=== PATIENT | female | born 1960 | race Caucasian/White ===

== ENCOUNTER 2017-04-23 06:10 | Inpatient (IN) | payer BC ==
[~2017-04-23 06:10] MED LIST: Lidocaine 1%/Sod Bicarbonate in NS 8.4% 1 ML Syringe IV PRN; Pregabalin 25 MG Cap PO ONE; Sodium Chloride 0.9% 10 ML Syringe FLUSH PRN; oxyCODONE ER 10 MG TAB.ER PO ONE
[2017-04-23] MEDS ORDERED: Naloxone 0.4 MG/ML SDV IVPUSH PRN (06:17)
[2017-04-23] MEDS ORDERED: diphenhydrAMINE 50 MG/ML SDV IVPUSH PRN (06:17)
[2017-04-23] MEDS ORDERED: Sennosides 8.6 MG Tab PO PRN (06:17)
[2017-04-23] MEDS ORDERED: Ondansetron 4 MG/2 ML SDV IVPUSH PRN ×2 (06:17→08:03)
[2017-04-23] MEDS ORDERED: Magnesium Hydroxide 400 MG/5 ML Susp 30 ML Cup PO PRN (06:17)
[2017-04-23] MEDS ORDERED: Docusate Sodium 100 MG Cap PO PRN (06:17)
[2017-04-23] MEDS ORDERED: Bisacodyl 5 MG Tab PO PRN (06:17)
[2017-04-23] MEDS ORDERED: Morphine 2 MG/ML Syringe IVPUSH PRN (06:17)
[2017-04-23] MEDS ORDERED: Iodine/Sodium Iodide 2% Tincture 30 ML Bottle ONE (06:20)
[2017-04-23] MEDS ORDERED: ceFAZolin 1 GM Vial ONE ×2 (06:20→06:36)
[2017-04-23] MEDS ORDERED: Vancomycin 1 GM SDV ONE (06:20)
[2017-04-23] MEDS ORDERED: Bupivacaine 0.25% 30 ML SDV ONE (06:20)
[2017-04-23] MEDS ORDERED: Propofol 200 MG/20 ML SDV ONE (06:35)
[2017-04-23] MEDS ORDERED: Midazolam 1 MG/ML 2 ML SDV ONE (06:35)
[2017-04-23] MEDS ORDERED: Lidocaine 1% 4 ML ONE (06:35)
[2017-04-23] MEDS ORDERED: Ondansetron 4 MG/2 ML SDV ONE (06:35)
[2017-04-23] MEDS ORDERED: Dexamethasone 4 MG/ML 5 ML MDV ONE (06:35)
[2017-04-23] MEDS ORDERED: Rocuronium 50 MG/5 ML Vial ONE (06:35)
[2017-04-23] MEDS ORDERED: fentaNYL 250 MCG/5 ML SDV ONE (06:35)
[2017-04-23] MEDS ORDERED: HYDROmorphone 1 MG/ML Syringe ONE ×2 (06:35→08:14)
[2017-04-23] MEDS: Lactated Ringers 1,000 ML IV SCH ×3 (06:40→11:04)
--- NOTE | 2017-04-23 06:50 | PCM.PREANE ---
Preanesthetic Assessment - Anesthesia/Transfusion/Family Hx Anesthesia History: Prior Anesthesia Without Reaction Family History of Anesthesia Reaction: No Transfusion History: No Prior Transfusion(s) Intubation History: Unknown - Review of Systems General: No Symptoms Pulmonary: No Symptoms Cardiovascular: No Symptoms Gastrointestinal: No Symptoms Neurological: No Symptoms Other: Reports: None - Physical Assessment NPO Status Date: 04/22/17 NPO Status Time: 18:00 Pulse: 80 O2 Sat by Pulse Oximetry: 97 Respiratory Rate: 16 Blood Pressure: 118/79 Temperature: 98.2 F ASA Class: 2 Mental Status: Alert & Oriented x3 Airway Class: Mallampati = 2 Dentition: Reports: Normal Dentition ROM/Head Extension: Full Lungs: Clear to Auscultation, Normal Respiratory Effort Cardiovascular: Regular Rate, Regular Rhythm - Lab Values: Laboratory Last Values Hgb 14.6 gm/L (11.2-15.7) 04/20/17 09:50 Hct 42.9 % (34.1-44.9) 04/20/17 09:50 Sodium 142 mEq/L (136-145) 04/20/17 09:50 Potassium 4.4 mEq/L (3.5-5.1) 04/20/17 09:50 Chloride 107 mEq/L (98-107) 04/20/17 09:50 Carbon Dioxide 27 mEq/L (21-32) 04/20/17 09:50 Anion Gap 12.4 (5-15) 04/20/17 09:50 BUN 12 mg/dL (7-18) 04/20/17 09:50 Creatinine 0.9 mg/dL (0.55-1.02) 04/20/17 09:50 Est Cr Clr Drug Dosing TNP 04/20/17 09:50 Estimated GFR (MDRD) > 60 mL/min (>60) 04/20/17 09:50 BUN/Creatinine Ratio 13.3 (14-18) L 04/20/17 09:50 Glucose 99 mg/dL (74-106) 04/20/17 09:50 Calcium 9.4 mg/dL (8.5-10.1) 04/20/17 09:50 MRSA (PCR) Negative 04/10/17 14:29 - Allergies Allergies/Adverse Reactions: Allergies Allergy/AdvReac Type Severity Reaction Status Date / Time No Known Allergies Allergy Verified 04/20/17 15:56 - Blood Blood Available: Yes - Acknowledgements Anesthesia Type Planned: General Anesthesia Pt an Appropriate Candidate for the Planned Anesthesia: Yes Alternatives and Risks of Anesthesia Discussed w Pt/Guardian: Yes Pt/Guardian Understands and Agrees with Anesthesia Plan: Yes PreAnesthesia Questionnaire HEENT History: Reports: Impaired Vision, Other (See Below) Other HEENT History: wears glasses Cardiovascular History: Reports: None Respiratory History: Reports: Bronchitis, Recurrent, Other (See Below) Other Respiratory History: cough, reactive airway disease, wheezing Gastrointestinal History: Reports: None Genitourinary History: Reports: None 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: Musculoskeletal History: Reports: Arthritis Neurological History: Reports: None Psychiatric History: Reports: None Endocrine/Metabolic History: Reports: None Hematologic History: Reports: None Immunologic History: Reports: None Oncologic (Cancer) History: Reports: None Dermatologic History: Reports: None - Past Surgical History Head Surgeries/Procedures: Reports: None Cardiovascular Surgical History: Reports: None Respiratory Surgical History: Reports: None GI Surgical History: Reports: Cholecystectomy Female Surgical History: Reports: None Male Surgical History: Reports: None Endocrine Surgical History: Reports: None Neurological Surgical History: Reports: None Musculoskeletal Surgical History: Reports: None Oncologic Surgical History: Reports: None Dermatological Surgical History: Reports: None - SUBSTANCE USE Smoking Status *Q: Never Smoker Tobacco Use Within Last Twelve Months: No Second Hand Smoke Exposure: No Recreational Drug Use History: No - HOME MEDS Home Medications: Home Meds Acetaminophen/oxyCODONE [Percocet 325-5 MG] 1 - 2 tab PO Q4H PRN #60 tablet [Rx] Bisacodyl [Dulcolax] 5 mg PO DAILY PRN #0 tablet 04/23/17 [Rx] Cyclobenzaprine [Flexeril] 10 mg PO TID PRN #40 tablet 04/23/17 [Rx] Docusate Sodium [Colace] 100 mg PO BID PRN cap 04/23/17 [Rx] Famotidine [Pepcid] 20 mg PO Q12H tablet 04/23/17 [Rx] Magnesium Hydroxide [Milk of Magnesia] 30 ml PO BID PRN cup 04/23/17 [Rx] Sennosides [Senna] 8.6 mg PO BID PRN tablet 10/23/17 [Rx] Aspirin [Ecotrin] 325 mg PO BID #70 tab.ec 04/24/17 [Rx] - CURRENT (IN HOUSE) MEDS Current Meds: Current Medications Aspirin (Ecotrin) 325 mg PO BID FELICIA Bisacodyl (Dulcolax) 5 mg PO DAILY PRN PRN Reason: Constipation Morphine Sulfate 8 mg/Epinephrine HCl 0.3 mg/Cefuroxime Sodium 750 mg/Ketorolac Tromethamine 30 mg/Sodium Chloride 27.9 ml 0 mg .XX ONETIME ONE Stop: 04/23/17 06:18 Cyclobenzaprine HCl (Flexeril) 10 mg PO TID PRN PRN Reason: Spasms Diphenhydramine HCl (Benadryl) 25 mg IVPUSH Q4H PRN PRN Reason: Nausea Docusate Sodium (Colace) 100 mg PO BID PRN PRN Reason: Constipation Famotidine (Pepcid) 20 mg PO Q12H FELICIA Lactated Ringer's (Ringers, Lactated) 1,000 mls @ 125 mls/hr IV ASDIRECTED FELICIA Cefazolin Sodium/Dextrose 2 gm (/ Premix) 50 mls @ 100 mls/hr IV Q8H FELICIA Stop: 04/23/17 22:59 Ketorolac Tromethamine (Toradol) 15 mg IVPUSH Q6H PRN PRN Reason: Pain Lidocaine/Sodium Bicarbonate (Buffered Lidocaine 1% In Ns 8.4%) 0.25 ml IV ONETIME PRN PRN Reason: Prior to IV Start Magnesium Hydroxide (Milk Of Magnesia) 30 ml PO BID PRN PRN Reason: Constipation Morphine Sulfate (Morphine) 2 mg IVPUSH Q2H PRN PRN Reason: Breakthrough Pain Naloxone HCl (Narcan) 0.1 mg IVPUSH Q5M PRN PRN Reason: Oversedation Ondansetron HCl (Zofran) 4 mg IVPUSH Q6H PRN PRN Reason: Nausea/Vomiting Oxycodone/Acetaminophen (Percocet 325-5 Mg) 1 - 2 tab PO Q4H PRN PRN Reason: Pain Senna (Senna) 8.6 mg PO BID PRN PRN Reason: Constipation Sodium Chloride (Saline Flush) 10 ml FLUSH ASDIRECTED PRN PRN Reason: Keep Vein Open Discontinued Medications Bupivacaine HCl (Marcaine 0.25%) Confirm Administered Dose 30 ml .ROUTE .STK- MED ONE Stop: 04/23/17 06:21 Cefazolin Sodium (Ancef) Confirm Administered Dose 2 gm .ROUTE .STK-MED ONE Stop: 04/23/17 06:37 Cefazolin Sodium (Ancef) Confirm Administered Dose 2 gm .ROUTE .STK-MED ONE Stop: 04/23/17 06:21 Dexamethasone (Dexamethasone) Confirm Administered Dose 20 mg .ROUTE .STK-MED ONE Stop: 04/23/17 06:36 Fentanyl (Sublimaze) Confirm Administered Dose 250 mcg .ROUTE .STK-MED ONE Stop: 04/23/17 06:36 Hydromorphone HCl (Dilaudid) Confirm Administered Dose 1 mg .ROUTE .STK-MED ONE Stop: 04/23/17 06:36 Acetaminophen (Ofirmev) 100 mls @ 400 mls/hr IV ONETIME ONE Stop: 04/23/17 06:14 Lidocaine HCl (Xylocaine-Mpf 1%) Confirm Administered Dose 4 mls @ as directed .ROUTE .STK-MED ONE Stop: 04/23/17 06:36 Iodine (Iodine 2% Mild Tincture) Confirm Administered Dose 30 ml .ROUTE .STK- MED ONE Stop: 04/23/17 06:21 Midazolam HCl (Versed 1 Mg/Ml) Confirm Administered Dose 2 mg .ROUTE .STK-MED ONE Stop: 04/23/17 06:36 Ondansetron HCl (Zofran) Confirm Administered Dose 4 mg .ROUTE .STK-MED ONE Stop: 04/23/17 06:36 Oxycodone HCl (Oxycontin) 10 mg PO ASDIRECTED ONE Stop: 04/23/17 06:01 Pregabalin (Lyrica) 50 mg PO ASDIRECTED ONE Stop: 04/23/17 06:01 Propofol (Diprivan 20 Ml) Confirm Administered Dose 200 mg .ROUTE .STK-MED ONE Stop: 04/23/17 06:36 Rocuronium [place] (Zemuron) Confirm Administered Dose 50 mg .ROUTE .STK-MED ONE Stop: 04/23/17 06:36 Tranexamic Acid (Cyklokapron) Confirm Administered Dose 1,000 mg .ROUTE .STK- MED ONE Stop: 04/23/17 06:21 Vancomycin HCl (Vancomycin) Confirm Administered Dose 1 gm .ROUTE .[employer] ONE Stop: 04/23/17 06:21
--- NOTE | 2017-04-23 07:13 | PCM.OPNOTE ---
- General Post-Op/Procedure Note Date of Surgery/Procedure: 04/23/17 Operative Procedure(s): right total hip artrhoplasty Pre Op Diagnosis: right hip osteoarthrosis Post-Op Diagnosis: Same Anesthesia Technique: Local, MAC, Spinal Primary Surgeon: Abraham Luna Anesthesia Provider: Steven Quiñones Mining Analyst: Vivien Harding Mining Analyst: Yael Harris EBL in mLs: 700 Complications: None Condition: Good Free Text/Narrative:: 56 5 36+5
[2017-04-23] MEDS ORDERED: Morphine 8 MG, EPINEPHrine 0.3 MG, Cefuroxime 750 MG, Ketorolac 30 MG, Sodium Chloride ... ONE ×5 (07:30)
[2017-04-23] MEDS ORDERED: Ketamine 500 mg/10 ML MDV ONE (07:49)
[2017-04-23] MEDS ORDERED: Phenylephrine 1% 10 MG/ML SDV ONE (07:50)
[2017-04-23] MEDS ORDERED: Ketorolac 30 MG/ML SDV ONE (07:53)
[2017-04-23] MEDS ORDERED: HYDROmorphone 0.5 MG/0.5 ML Syringe IVPUSH PRN (08:03)
[2017-04-23] MEDS ORDERED: fentaNYL 100 MCG/2 ML SDV IVPUSH PRN (08:03)
[2017-04-23] MEDS ORDERED: Meperidine PF 50 MG/ML Syringe IVPUSH PRN (08:03)
[2017-04-23] MEDS ORDERED: Lactated Ringers 1,000 ML ONE ×3 (08:13→08:34)
[2017-04-23] MEDS ORDERED: ePHEDrine 50 MG/ML SDV ONE (08:23)
[2017-04-23] MEDS ORDERED: Neostigmine Methylsulfate 1 MG/ML 5 ML Syringe ONE (08:44)
[2017-04-23] MEDS ORDERED: FLU Vacc QS 2017-18 (6mos UP)/PF 60 MCG/0.5 ML Syringe IM ONE (08:45)
--- NOTE | 2017-04-23 09:17 | PCM.POSTAN ---
POST ANESTHESIA ASSESSMENT - MENTAL STATUS Mental Status: Alert, Oriented - VITAL SIGNS Pulse Rate: 79 SaO2: 95 Resp Rate: 16 Blood Pressure: 84/42 Temperature: 97.2 F - RESPIRATORY Respiratory Status: Respiratory Rate WNL, Airway Patent, O2 Saturation Stable - CARDIOVASCULAR CV Status: Pulse Rate WNL, Blood Pressure Stable - GASTROINTESTINAL GI Status: No Symptoms - PAIN Pain Score: 0 - POST OP HYDRATION Hydration Status: Adequate & Stable
--- NOTE | 2017-04-23 10:45 | CR ---
Pelvis and right hip: AP view of the pelvis was obtained as well as frog leg lateral view of the right hip. Comparison: No prior hip exam. Right hip prosthesis is seen. Components are aligned. Soft tissue air is noted around the right hip compatible with the surgical procedure. No underlying bony abnormality is seen. Moderate degenerative change is seen within the left hip with joint space narrowing and spurring. Impression: 1. Satisfactory radiographic appearance of recently placed right hip prosthesis. 2. Moderate degenerative change is noted within the left hip. Diagnostic code #2
[2017-04-23] MEDS: Ketorolac 15 MG/ML SDV IVPUSH PRN (11:49)
[2017-04-23] MEDS ORDERED: Scopolamine 1.5 MG Transdermal Patch TOP ONE (12:35)
[2017-04-23] MEDS: ceFAZolin 2 GM in Premix Bag 1 BAG IV SCH ×3 (13:49→22:24)
[2017-04-23] MEDS: Acetaminophen/oxyCODONE 325-5 MG Tab PO PRN ×3 (13:51→22:26)
--- NOTE | 2017-04-23 15:26 | PCM.CONS ---
H&P History of Present Illness - General Date of Service: 04/23/17 Admit Problem/Dx: Admission Diagnosis/Problem Admission Diagnosis/Problem Osteoarthritis of hip Source of Information: Patient, Family, Old Records, Provider, RN, RN Notes Reviewed History Limitations: Reports: Physical Impairment - History of Present Illness Initial Comments - Free Text/Narative: This is a 57-year-old, white female, with past medical history of OA, Chronic Hip Pain, RAD and Obesity who underwent right total hip arthroplasty post operative day zero. Patient is not doing well. She is hypotensive and actively nauseous w/ emesis. Currently, her pain is controlled. She denies any other acute issues. Hospital Medicine was consulted for postoperative care. Right Hip Pain Score (Numeric/FACES): 0 - Related Data Allergies/Adverse Reactions: Allergies Allergy/AdvReac Type Severity Reaction Status Date / Time No Known Allergies Allergy Verified 04/20/17 15:56 Home Medications: Home Meds Acetaminophen/oxyCODONE [Percocet 325-5 MG] 1 - 2 tab PO Q4H PRN #60 tablet [Rx] Bisacodyl [Dulcolax] 5 mg PO DAILY PRN #0 tablet 04/23/17 [Rx] Cyclobenzaprine [Flexeril] 10 mg PO TID PRN #40 tablet 04/23/17 [Rx] Docusate Sodium [Colace] 100 mg PO BID PRN cap 04/23/17 [Rx] Famotidine [Pepcid] 20 mg PO Q12H tablet 04/23/17 [Rx] Magnesium Hydroxide [Milk of Magnesia] 30 ml PO BID PRN cup 04/23/17 [Rx] Sennosides [Senna] 8.6 mg PO BID PRN tablet 04/23/17 [Rx] Aspirin [Ecotrin] 325 mg PO BID #70 tab.ec 04/24/17 [Rx] Past Medical History HEENT History: Reports: Impaired Vision, Other (See Below) Other HEENT History: wears glasses Cardiovascular History: Reports: None Respiratory History: Reports: Bronchitis, Recurrent, Other (See Below) Other Respiratory History: cough, reactive airway disease, wheezing Gastrointestinal History: Reports: None Genitourinary History: Reports: None 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: Musculoskeletal History: Reports: Arthritis Neurological History: Reports: None Psychiatric History: Reports: None Endocrine/Metabolic History: Reports: None Hematologic History: Reports: None Immunologic History: Reports: None Oncologic (Cancer) History: Reports: None Dermatologic History: Reports: None - Infectious Disease History Infectious Disease History: Reports: Chicken Pox - Past Surgical History Head Surgeries/Procedures: Reports: None Cardiovascular Surgical History: Reports: None Respiratory Surgical History: Reports: None GI Surgical History: Reports: Cholecystectomy Female Surgical History: Reports: None Male Surgical History: Reports: None Endocrine Surgical History: Reports: None Neurological Surgical History: Reports: None Musculoskeletal Surgical History: Reports: None Oncologic Surgical History: Reports: None Dermatological Surgical History: Reports: None Social & Family History - Family History Family Medical History: Noncontributory - Tobacco Use Smoking Status *Q: Never Smoker Second Hand Smoke Exposure: No - Caffeine Use Caffeine Use: Reports: Coffee - Recreational Drug Use Recreational Drug Use: No Drug Use in Last 12 Months: No H&P Review of Systems - Review of Systems: Review Of Systems: See Below General: Denies: Fever, Chills, Malaise, Weakness HEENT: Reports: No Symptoms Pulmonary: Denies: Shortness of Breath Cardiovascular: Denies: Chest Pain Gastrointestinal: Reports: Nausea, Vomiting. Denies: Abdominal Pain, Decreased Appetite Genitourinary: Reports: No Symptoms Musculoskeletal: Reports: No Symptoms Skin: Denies: Cyanosis, Pallor, Diaphoresis Psychiatric: Reports: Anxiety. Denies: Depression, Agitation, Hallucinations Neurological: Reports: Difficulty Walking, Gait Disturbance. Denies: Confusion , Weakness Hematologic/Lymphatic: Reports: No Symptoms Immunologic: Reports: No Symptoms Exam - Exam Exam: See Below - Vital Signs Vital Signs: Last Vital Signs Temp 35.8 C 04/23/17 10:39 Pulse 68 04/23/17 14:32 Resp 18 04/23/17 10:39 BP 108/53 L 04/23/17 14:32 Pulse Ox 99 04/23/17 14:32 Weight: 78.018 kg - Exam General: Alert, Oriented, Cooperative, Mild Distress, Other (Obese) HEENT: Conjunctiva Clear, EACs Clear, EOMI, Hearing Intact, Mucosa Moist & [place] , Nares Patent, Normal Nasal Septum, Posterior Pharynx Clear, Pupils Equal, Pupils Reactive Neck: Supple, Trachea Midline, +2 Carotid Pulse wo Bruit, Full Range of Motion Lungs: Clear to Auscultation, Normal Respiratory Effort Cardiovascular: Regular Rate, Regular Rhythm GI/Abdominal Exam: Normal Bowel Sounds, Soft, Non-Tender, No Organomegaly, No Distention, No Abnormal Bruit (Female) Exam: Deferred Rectal (Female) Exam: Deferred Back Exam: Normal Inspection, Decreased Range of Motion Extremities: Normal Inspection, Normal Range of Motion, Non-Tender, No Pedal Edema, Normal Capillary Refill Peripheral Pulses: 2+: Dorsalis Pedis (L), Dorsalis Pedis (R) Skin: Warm, Dry, Intact Neuro Extensive - Mental Status: Oriented x3, Normal Cognition, Memory Intact Neuro Extensive - Motor, Sensory, Reflexes: CN II-XII Intact (Limited but grossly intact), Abnormal Gait Psychiatric: Alert, Normal Affect, Anxious. No: Withdrawal Symptoms - Patient Data Lab Results Last 24 hrs: Laboratory Results - last 24 hr 04/23/17 Range/Units 06:40 Blood Type A POSITIVE Gel Antibody Screen Negative Result Diagrams: 04/20/17 09:50 04/20/17 09:50 Consult PN Assessment/Plan POD#: 0 Procedures: Procedures CHEST X-RAY 2VW FRONTAL&LATL (04/06/17) MRI LUMBAR SPINE W/O DYE (11/07/13) X-RAY BEND ONLY L-S SPINE (11/07/13) X-RAY EXAM L-S SPINE 2/3 VWS (10/03/16) X-RAY EXAM NECK SPINE 2-3 VW (10/03/16) X-RAY EXAM THORAC SPINE 2VWS (10/03/16) Problem List Initiated/Reviewed/Updated: Yes Plan: Assessment: Acute: Post-Operative Care State - Patient is hypotensive with BP as lows as 84/42 mmHg - Continue to monitor for hemodynamic instability S/p Right Total Hip Arthroplasty - Stable - DVT and Pain Management as per primary team Hx/o Chronic Hip Pain S/p Right EMILY - Pain Management as per primary team Post Operative Hypotension - Had an est blood loss of 700 ml - Bolus 1/2 of currently 1L LR then resume maintenance rate at 125 cc/hr - Monitor vitals Post-Operative Nausea/Vomiting - Scopolamine Patch x1 - PRN anti-emesis Chronic: OA RAD Obesity with BMI of 31 Plan: She is hemodynamically unstable Routine AM labs Continue home meds PT/OT consult IS q2 awake Thank you for the opportunity to participate in the management of this patient. Requesting Provider: Dr. Luna Date Consult Requested: 04/23/17 Reason for Consult: Post-Operative Care Patient History Reviewed: Yes Admission H&P Reviewed: Yes Consult Result/Summary: Patient is hemodynamically unstable
[2017-04-23] MEDS: Cyclobenzaprine 10 MG Tab PO PRN (16:19)
[2017-04-23] MEDS: Famotidine 20 MG Tab PO SCH ×2 (18:11→19:48)
[2017-04-24] MEDS: Acetaminophen/oxyCODONE 325-5 MG Tab PO PRN (06:01)
[2017-04-24] MEDS: Cyclobenzaprine 10 MG Tab PO PRN (06:03)
[2017-04-24] MEDS: Famotidine 20 MG Tab PO SCH (06:03)
[2017-04-24] MEDS ORDERED: Aspirin 325 MG Tab.EC PO SCH (09:00)
--- NOTE | 2017-04-24 09:53 | PCM48HPAN ---
Post Anesthesia Note - EVALUATION WITHIN 48HRS OF ANESTHETIC Vital Signs in Normal Range: Yes Patient Participated in Evaluation: Yes Respiratory Function Stable: Yes Airway Patent: Yes Cardiovascular Function Stable: Yes Hydration Status Stable: Yes Pain Control Satisfactory: Yes Nausea and Vomiting Control Satisfactory: Yes Mental Status Recovered: Yes - COMMENTS/OBSERVATIONS Free Text/Narrative:: Kelly is up walking. She feels good. No more nausea noted after about 1500 yesterday. She is tolerating eating. Pain is satisfactory. She has no further questions at this time. No complications noted.
[2017-04-24] MEDS: Ketorolac 15 MG/ML SDV IVPUSH PRN (13:48)
--- NOTE | 2017-04-24 15:11 | PCM.PN ---
- General Info Date of Service: 04/24/17 Admission Dx/Problem (Free Text): Admission Diagnosis/Problem Admission Diagnosis/Problem Osteoarthritis of hip Functional Status: Reports: Pain Controlled, Tolerating Diet, Ambulating, Urinating. Denies: New Symptoms - Patient Data Vitals - Most Recent: Last Vital Signs Temp 36.7 C 04/24/17 12:16 Pulse 79 04/24/17 12:16 Resp 16 04/24/17 12:16 BP 106/58 L 04/24/17 12:16 Pulse Ox 95 04/24/17 12:16 Weight - Most Recent: 82.372 kg I&O - Last 24 Hours: Intake & Output 04/24/17 04/24/17 04/24/17 06:59 14:59 22:59 Intake Total 775 780 Output Total 2900 Balance -2125 780 Lab Results Last 24 Hours: Laboratory Results - last 24 hr 04/24/17 04/24/17 Range/Units 05:42 05:42 WBC 18.73 H (3.98-10.04) K/mm3 RBC 3.39 L (3.98-5.22) M/mm3 Hgb 10.5 L (11.2-15.7) gm/L Hct 30.9 L (34.1-44.9) % MCV 91.2 (79.4-94.8) fl MCH 31.0 (25.6-32.2) pg MCHC 34.0 (32.2-35.5) g/dl RDW Std Deviation 40.3 (36.4-46.3) fL Plt Count 268 (182-369) K/mm3 MPV 9.7 (9.4-12.3) fl Neut % (Auto) 85.0 H (34.0-71.1) % Lymph % (Auto) 7.7 L (19.3-51.7) % Barry % (Auto) 6.8 (4.7-12.5) % Eos % (Auto) 0.1 L (0.7-5.8) Baso % (Auto) 0.1 (0.1-1.2) % Neut # (Auto) 15.94 H (1.56-6.13) K/mm3 Lymph # (Auto) 1.44 (1.18-3.74) K/mm3 Barry # (Auto) 1.27 H (0.24-0.36) K/mm3 Eos # (Auto) 0.01 L (0.04-0.36) K/mm3 Baso # (Auto) 0.01 (0.01-0.08) K/mm3 Manual Slide Review Abnormal smear Sodium 139 (136-145) mEq/L Potassium 5.3 H (3.5-5.1) mEq/L Chloride 105 (98-107) mEq/L Carbon Dioxide 25 (21-32) mEq/L Anion Gap 14.3 (5-15) BUN 14 (7-18) mg/dL Creatinine 1.1 H (0.55-1.02) mg/dL Est Cr Clr Drug Dosing 44.09 mL/min Estimated GFR (MDRD) 51 (>60) mL/min BUN/Creatinine Ratio 12.7 L (14-18) Glucose 116 H (74-106) mg/dL Calcium 9.2 (8.5-10.1) mg/dL Total Bilirubin 0.5 (0.2-1.0) mg/dL AST 36 (15-37) U/L ALT 45 (14-59) U/L Alkaline Phosphatase 67 (46-116) U/L Total Protein 6.2 L (6.4-8.2) g/dl Albumin 3.0 L (3.4-5.0) g/dl Globulin 3.2 gm/dL Albumin/Globulin Ratio 0.9 L (1-2) Med Orders - Current: Current Medications Aspirin (Ecotrin) 325 mg PO BID [facility] Last Admin: 04/24/17 09:45 Dose: 325 mg Bisacodyl (Dulcolax) 5 mg PO DAILY PRN PRN Reason: Constipation Cyclobenzaprine HCl (Flexeril) 10 mg PO TID PRN PRN Reason: Spasms Last Admin: 04/24/17 06:03 Dose: 10 mg Diphenhydramine HCl (Benadryl) 25 mg IVPUSH Q4H PRN PRN Reason: Nausea Docusate Sodium (Colace) 100 mg PO BID PRN PRN Reason: Constipation Famotidine (Pepcid) 20 mg PO Q12H [facility] Last Admin: 04/24/17 06:03 Dose: 20 mg Magnesium Hydroxide (Milk Of Magnesia) 30 ml PO BID PRN PRN Reason: Constipation Morphine Sulfate (Morphine) 2 mg IVPUSH Q2H PRN PRN Reason: Breakthrough Pain Naloxone HCl (Narcan) 0.1 mg IVPUSH Q5M PRN PRN Reason: Oversedation Ondansetron HCl (Zofran) 4 mg IVPUSH Q6H PRN PRN Reason: Nausea/Vomiting Last Admin: 04/23/17 11:40 Dose: 4 mg Oxycodone/Acetaminophen (Percocet 325-5 Mg) 1 - 2 tab PO Q4H PRN PRN Reason: Pain Last Admin: 04/24/17 06:01 Dose: 2 tab Senna (Senna) 8.6 mg PO BID PRN PRN Reason: Constipation Sodium Chloride (Saline Flush) 10 ml FLUSH ASDIRECTED PRN PRN Reason: Keep Vein Open Discontinued Medications Bupivacaine HCl (Marcaine 0.25%) Confirm Administered Dose 30 ml .ROUTE .STK- MED ONE Stop: 04/23/17 06:21 Last Admin: 04/23/17 08:36 Dose: 30 ml Cefazolin Sodium (Ancef) Confirm Administered Dose 2 gm .ROUTE .STK-MED ONE Stop: 04/23/17 06:37 Last Admin: 04/23/17 08:30 Dose: 2 gm Cefazolin Sodium (Ancef) Confirm Administered Dose 2 gm .ROUTE .STK-MED ONE Stop: 04/23/17 06:21 Morphine Sulfate 8 mg/Epinephrine HCl 0.3 mg/Cefuroxime Sodium 750 mg/Ketorolac Tromethamine 30 mg/Sodium Chloride 27.9 ml 0 mg .XX ONETIME ONE Stop: 04/23/17 07:31 Last Admin: 04/23/17 08:35 Dose: 788.3 mg Dexamethasone (Dexamethasone) Confirm Administered Dose 20 mg .ROUTE .STK-MED ONE Stop: 04/23/17 06:36 Ephedrine Sulfate (Ephedrine Sulfate) Confirm Administered Dose 50 mg .ROUTE .STK-MED ONE Stop: 04/23/17 08:24 Fentanyl (Sublimaze) Confirm Administered Dose 250 mcg .ROUTE .STK-MED ONE Stop: 04/23/17 06:36 Fentanyl (Sublimaze) 50 mcg IVPUSH Q5M PRN PRN Reason: Pain Stop: 04/23/17 11:00 Glycopyrrolate () Confirm Administered Dose 1 mg .ROUTE .STK-MED ONE Stop: 04/23/17 08:45 Hydromorphone HCl (Dilaudid) Confirm Administered Dose 1 mg .ROUTE .STK-MED ONE Stop: 04/23/17 06:36 Hydromorphone HCl (Dilaudid) Confirm Administered Dose 1 mg .ROUTE .STK-MED ONE Stop: 04/23/17 08:15 Hydromorphone HCl (Dilaudid) 0.5 mg IVPUSH Q15M PRN PRN Reason: severe pain Stop: 04/23/17 11:00 Lactated Ringer's (Ringers, Lactated) 1,000 mls @ 125 mls/hr IV ASDIRECTED [facility] Last Admin: 04/23/17 11:04 Dose: 125 mls/hr Acetaminophen (Ofirmev) 100 mls @ 400 mls/hr IV ONETIME ONE Stop: 04/23/17 06:14 Last Admin: 04/23/17 06:51 Dose: 400 mls/hr Lidocaine HCl (Xylocaine-Mpf 1%) Confirm Administered Dose 4 mls @ as directed .ROUTE .STK-MED ONE Stop: 04/23/17 06:36 Cefazolin Sodium/Dextrose 2 gm (/ Premix) 50 mls @ 100 mls/hr IV Q8H [facility] Stop: 04/23/17 22:59 Last Admin: 04/23/17 22:24 Dose: 100 mls/hr Lactated Ringer's (Ringers, Lactated) Confirm Administered Dose 1,000 mls @ as directed .ROUTE .STK-MED ONE Stop: 04/23/17 08:14 Lactated Ringer's (Ringers, Lactated) Confirm Administered Dose 1,000 mls @ as directed .ROUTE .STK-MED ONE Stop: 04/23/17 08:35 Lactated Ringer's (Ringers, Lactated) Confirm Administered Dose 1,000 mls @ as directed .ROUTE .STK-MED ONE Stop: 04/23/17 08:35 Influenza Virus Vaccine (Pharmacy To Dose - Influenza Vaccine) 1 each IM ONETIME ONE Stop: 04/23/17 08:30 Last Admin: 04/24/17 01:52 Dose: Not Given Influenza Virus Vaccine (Flulaval Quad [id number]) 60 mcg IM .ONCE ONE Stop: 04/23/17 08:46 Iodine (Iodine 2% Mild Tincture) Confirm Administered Dose 30 ml .ROUTE .STK- MED ONE Stop: 04/23/17 06:21 Last Admin: 04/23/17 08:27 Dose: 18 ml Ketamine HCl (Ketalar) Confirm Administered Dose 500 mg .ROUTE .STK-MED ONE Stop: 04/23/17 07:50 Ketorolac Tromethamine (Toradol) 15 mg IVPUSH Q6H PRN PRN Reason: Pain Last Admin: 04/24/17 13:48 Dose: 15 mg Ketorolac Tromethamine (Toradol) Confirm Administered Dose 30 mg .ROUTE .STK- MED ONE Stop: 04/23/17 07:54 Lidocaine/Sodium Bicarbonate (Buffered Lidocaine 1% In Ns 8.4%) 0.25 ml IV ONETIME PRN PRN Reason: Prior to IV Start Last Admin: 04/23/17 06:40 Dose: 0.25 ml Meperidine HCl (Demerol) 12.5 mg IVPUSH ONETIME PRN PRN Reason: shivering Stop: 04/23/17 11:00 Midazolam HCl (Versed 1 Mg/Ml) Confirm Administered Dose 2 mg .ROUTE .STK-MED ONE Stop: 04/23/17 06:36 Neostigmine Methylsulfate (Neostigmine) Confirm Administered Dose 5 mg .ROUTE .STK-MED ONE Stop: 04/23/17 08:45 Ondansetron HCl (Zofran) Confirm Administered Dose 4 mg .ROUTE .STK-MED ONE Stop: 04/23/17 06:36 Ondansetron HCl (Zofran) 4 mg IVPUSH ONETIME PRN PRN Reason: Nausea/Vomiting Stop: 04/23/17 11:00 Oxycodone HCl (Oxycontin) 10 mg PO ASDIRECTED ONE Stop: 04/23/17 06:01 Last Admin: 04/23/17 06:50 Dose: 10 mg Phenylephrine HCl (Francois-Synephrine) Confirm Administered Dose 10 mg .ROUTE .STK- MED ONE Stop: 04/23/17 07:51 Pregabalin (Lyrica) 50 mg PO ASDIRECTED ONE Stop: 04/23/17 06:01 Last Admin: 04/23/17 06:49 Dose: 50 mg Propofol (Diprivan 20 Ml) Confirm Administered Dose 200 mg .ROUTE .STK-MED ONE Stop: 04/23/17 06:36 Rocuronium [place] (Zemuron) Confirm Administered Dose 50 mg .ROUTE .STK-MED ONE Stop: 04/23/17 06:36 Scopolamine (Transderm-Scop) 1.5 mg TOP ONETIME ONE Stop: 04/23/17 12:36 Last Admin: 04/23/17 13:49 Dose: 1.5 mg Tranexamic Acid (Cyklokapron) Confirm Administered Dose 1,000 mg .ROUTE .STK- MED ONE Stop: 04/23/17 06:21 Last Admin: 04/23/17 08:46 Dose: 1,000 mg Vancomycin HCl (Vancomycin) Confirm Administered Dose 1 gm .ROUTE .STK-MED ONE Stop: 04/23/17 06:21 Last Admin: 04/23/17 08:37 Dose: 1 gm
--- NOTE | 2017-04-24 15:17 | PCM.CONSN ---
- General Info Date of Service: 04/24/17 Admission Dx/Problem (Free Text): Post Operative State Subjective Update: Follow Up Functional Status: Reports: Pain Controlled, Tolerating Diet, Ambulating, Urinating. Denies: New Symptoms - Review of Systems General: Denies: Fever, Weakness, Fatigue, Malaise, Chills HEENT: Reports: No Symptoms Pulmonary: Denies: Shortness of Breath Cardiovascular: Denies: Chest Pain Gastrointestinal: Denies: Abdominal Pain, Nausea, Vomiting Genitourinary: Reports: No Symptoms Musculoskeletal: Reports: No Symptoms Skin: Denies: Cyanosis, Pallor, Diaphoresis Neurological: Reports: Gait Disturbance. Denies: Confusion, Difficulty Walking , Weakness Psychiatric: Denies: Depression, Anxiety, Agitation, Hallucinations Systems Review Comment:: No overnight or acute issues. She is doing relatively well. Pain is controlled. She is tolerating po meals w/o any GI issues. - Patient Data Vitals - Most Recent: Last Vital Signs Temp 36.7 C 04/24/17 12:16 Pulse 79 04/24/17 12:16 Resp 16 04/24/17 12:16 BP 106/58 L 04/24/17 12:16 Pulse Ox 95 04/24/17 12:16 Weight - Most Recent: 82.372 kg I&O - Last 24 Hours: Intake & Output 04/24/17 04/24/17 04/24/17 06:59 14:59 22:59 Intake Total 775 780 Output Total 2900 Balance -2125 780 Lab Results Last 24 Hours: Laboratory Results - last 24 hr 04/24/17 04/24/17 Range/Units 05:42 05:42 WBC 18.73 H (3.98-10.04) K/mm3 RBC 3.39 L (3.98-5.22) M/mm3 Hgb 10.5 L (11.2-15.7) gm/L Hct 30.9 L (34.1-44.9) % MCV 91.2 (79.4-94.8) fl MCH 31.0 (25.6-32.2) pg MCHC 34.0 (32.2-35.5) g/dl RDW Std Deviation 40.3 (36.4-46.3) fL Plt Count 268 (182-369) K/mm3 MPV 9.7 (9.4-12.3) fl Neut % (Auto) 85.0 H (34.0-71.1) % Lymph % (Auto) 7.7 L (19.3-51.7) % [place] % (Auto) 6.8 (4.7-12.5) % Eos % (Auto) 0.1 L (0.7-5.8) Baso % (Auto) 0.1 (0.1-1.2) % Neut # (Auto) 15.94 H (1.56-6.13) K/mm3 Lymph # (Auto) 1.44 (1.18-3.74) K/mm3 [place] # (Auto) 1.27 H (0.24-0.36) K/mm3 Eos # (Auto) 0.01 L (0.04-0.36) K/mm3 Baso # (Auto) 0.01 (0.01-0.08) K/mm3 Manual Slide Review Abnormal smear Sodium 139 (136-145) mEq/L Potassium 5.3 H (3.5-5.1) mEq/L Chloride 105 (98-107) mEq/L Carbon Dioxide 25 (21-32) mEq/L Anion Gap 14.3 (5-15) BUN 14 (7-18) mg/dL Creatinine 1.1 H (0.55-1.02) mg/dL Est Cr Clr Drug Dosing 44.09 mL/min Estimated GFR (MDRD) 51 (>60) mL/min BUN/Creatinine Ratio 12.7 L (14-18) Glucose 116 H (74-106) mg/dL Calcium 9.2 (8.5-10.1) mg/dL Total Bilirubin 0.5 (0.2-1.0) mg/dL AST 36 (15-37) U/L ALT 45 (14-59) U/L Alkaline Phosphatase 67 (46-116) U/L Total Protein 6.2 L (6.4-8.2) g/dl Albumin 3.0 L (3.4-5.0) g/dl Globulin 3.2 gm/dL Albumin/Globulin Ratio 0.9 L (1-2) Med Orders - Current: Current Medications Aspirin (Ecotrin) 325 mg PO BID [facility] Last Admin: 04/24/17 09:45 Dose: 325 mg Bisacodyl (Dulcolax) 5 mg PO DAILY PRN PRN Reason: Constipation Cyclobenzaprine HCl (Flexeril) 10 mg PO TID PRN PRN Reason: Spasms Last Admin: 04/24/17 06:03 Dose: 10 mg Diphenhydramine HCl (Benadryl) 25 mg IVPUSH Q4H PRN PRN Reason: Nausea Docusate Sodium (Colace) 100 mg PO BID PRN PRN Reason: Constipation Famotidine (Pepcid) 20 mg PO Q12H [facility] Last Admin: 04/24/17 06:03 Dose: 20 mg Magnesium Hydroxide (Milk Of Magnesia) 30 ml PO BID PRN PRN Reason: Constipation Morphine Sulfate (Morphine) 2 mg IVPUSH Q2H PRN PRN Reason: Breakthrough Pain Naloxone HCl (Narcan) 0.1 mg IVPUSH Q5M PRN PRN Reason: Oversedation Ondansetron HCl (Zofran) 4 mg IVPUSH Q6H PRN PRN Reason: Nausea/Vomiting Last Admin: 04/23/17 11:40 Dose: 4 mg Oxycodone/Acetaminophen (Percocet 325-5 Mg) 1 - 2 tab PO Q4H PRN PRN Reason: Pain Last Admin: 04/24/17 06:01 Dose: 2 tab Senna (Senna) 8.6 mg PO BID PRN PRN Reason: Constipation Sodium Chloride (Saline Flush) 10 ml FLUSH ASDIRECTED PRN PRN Reason: Keep Vein Open Discontinued Medications Bupivacaine HCl (Marcaine 0.25%) Confirm Administered Dose 30 ml .ROUTE .STK- MED ONE Stop: 04/23/17 06:21 Last Admin: 04/23/17 08:36 Dose: 30 ml Cefazolin Sodium (Ancef) Confirm Administered Dose 2 gm .ROUTE .STK-MED ONE Stop: 04/23/17 06:37 Last Admin: 04/23/17 08:30 Dose: 2 gm Cefazolin Sodium (Ancef) Confirm Administered Dose 2 gm .ROUTE .STK-MED ONE Stop: 04/23/17 06:21 Morphine Sulfate 8 mg/Epinephrine HCl 0.3 mg/Cefuroxime Sodium 750 mg/Ketorolac Tromethamine 30 mg/Sodium Chloride 27.9 ml 0 mg .XX ONETIME ONE Stop: 04/23/17 07:31 Last Admin: 04/23/17 08:35 Dose: 788.3 mg Dexamethasone (Dexamethasone) Confirm Administered Dose 20 mg .ROUTE .STK-MED ONE Stop: 04/23/17 06:36 Ephedrine Sulfate (Ephedrine Sulfate) Confirm Administered Dose 50 mg .ROUTE .STK-MED ONE Stop: 04/23/17 08:24 Fentanyl (Sublimaze) Confirm Administered Dose 250 mcg .ROUTE .STK-MED ONE Stop: 04/23/17 06:36 Fentanyl (Sublimaze) 50 mcg IVPUSH Q5M PRN PRN Reason: Pain Stop: 04/23/17 11:00 Glycopyrrolate () Confirm Administered Dose 1 mg .ROUTE .STK-MED ONE Stop: 04/23/17 08:45 Hydromorphone HCl (Dilaudid) Confirm Administered Dose 1 mg .ROUTE .STK-MED ONE Stop: 04/23/17 06:36 Hydromorphone HCl (Dilaudid) Confirm Administered Dose 1 mg .ROUTE .STK-MED ONE Stop: 04/23/17 08:15 Hydromorphone HCl (Dilaudid) 0.5 mg IVPUSH Q15M PRN PRN Reason: severe pain Stop: 04/23/17 11:00 Lactated Ringer's (Ringers, Lactated) 1,000 mls @ 125 mls/hr IV ASDIRECTED [facility] Last Admin: 04/23/17 11:04 Dose: 125 mls/hr Acetaminophen (Ofirmev) 100 mls @ 400 mls/hr IV ONETIME ONE Stop: 04/23/17 06:14 Last Admin: 04/23/17 06:51 Dose: 400 mls/hr Lidocaine HCl (Xylocaine-Mpf 1%) Confirm Administered Dose 4 mls @ as directed .ROUTE .STK-MED ONE Stop: 04/23/17 06:36 Cefazolin Sodium/Dextrose 2 gm (/ Premix) 50 mls @ 100 mls/hr IV Q8H [facility] Stop: 04/23/17 22:59 Last Admin: 04/23/17 22:24 Dose: 100 mls/hr Lactated Ringer's (Ringers, Lactated) Confirm Administered Dose 1,000 mls @ as directed .ROUTE .STK-MED ONE Stop: 04/23/17 08:14 Lactated Ringer's (Ringers, Lactated) Confirm Administered Dose 1,000 mls @ as directed .ROUTE .STK-MED ONE Stop: 04/23/17 08:35 Lactated Ringer's (Ringers, Lactated) Confirm Administered Dose 1,000 mls @ as directed .ROUTE .STK-MED ONE Stop: 04/23/17 08:35 Influenza Virus Vaccine (Pharmacy To Dose - Influenza Vaccine) 1 each IM ONETIME ONE Stop: 04/23/17 08:30 Last Admin: 04/24/17 01:52 Dose: Not Given Influenza Virus Vaccine (Flulaval Quad [id number]) 60 mcg IM .ONCE ONE Stop: 04/23/17 08:46 Iodine (Iodine 2% Mild Tincture) Confirm Administered Dose 30 ml .ROUTE .STK- MED ONE Stop: 04/23/17 06:21 Last Admin: 04/23/17 08:27 Dose: 18 ml Ketamine HCl (Ketalar) Confirm Administered Dose 500 mg .ROUTE .STK-MED ONE Stop: 04/23/17 07:50 Ketorolac Tromethamine (Toradol) 15 mg IVPUSH Q6H PRN PRN Reason: Pain Last Admin: 04/24/17 13:48 Dose: 15 mg Ketorolac Tromethamine (Toradol) Confirm Administered Dose 30 mg .ROUTE .STK- MED ONE Stop: 04/23/17 07:54 Lidocaine/Sodium Bicarbonate (Buffered Lidocaine 1% In Ns 8.4%) 0.25 ml IV ONETIME PRN PRN Reason: Prior to IV Start Last Admin: 04/23/17 06:40 Dose: 0.25 ml Meperidine HCl (Demerol) 12.5 mg IVPUSH ONETIME PRN PRN Reason: shivering Stop: 04/23/17 11:00 Midazolam HCl (Versed 1 Mg/Ml) Confirm Administered Dose 2 mg .ROUTE .STK-MED ONE Stop: 04/23/17 06:36 Neostigmine Methylsulfate (Neostigmine) Confirm Administered Dose 5 mg .ROUTE .STK-MED ONE Stop: 04/23/17 08:45 Ondansetron HCl (Zofran) Confirm Administered Dose 4 mg .ROUTE .STK-MED ONE Stop: 04/23/17 06:36 Ondansetron HCl (Zofran) 4 mg IVPUSH ONETIME PRN PRN Reason: Nausea/Vomiting Stop: 04/23/17 11:00 Oxycodone HCl (Oxycontin) 10 mg PO ASDIRECTED ONE Stop: 04/23/17 06:01 Last Admin: 04/23/17 06:50 Dose: 10 mg Phenylephrine HCl (Francois-Synephrine) Confirm Administered Dose 10 mg .ROUTE .STK- MED ONE Stop: 04/23/17 07:51 Pregabalin (Lyrica) 50 mg PO ASDIRECTED ONE Stop: 04/23/17 06:01 Last Admin: 04/23/17 06:49 Dose: 50 mg Propofol (Diprivan 20 Ml) Confirm Administered Dose 200 mg .ROUTE .STK-MED ONE Stop: 04/23/17 06:36 Rocuronium [place] (Zemuron) Confirm Administered Dose 50 mg .ROUTE .STK-MED ONE Stop: 04/23/17 06:36 Scopolamine (Transderm-Scop) 1.5 mg TOP ONETIME ONE Stop: 04/23/17 12:36 Last Admin: 04/23/17 13:49 Dose: 1.5 mg Tranexamic Acid (Cyklokapron) Confirm Administered Dose 1,000 mg .ROUTE .STK- MED ONE Stop: 04/23/17 06:21 Last Admin: 04/23/17 08:46 Dose: 1,000 mg Vancomycin HCl (Vancomycin) Confirm Administered Dose 1 gm .ROUTE .STK-MED ONE Stop: 04/23/17 06:21 Last Admin: 04/23/17 08:37 Dose: 1 gm - Exam General: Alert, Oriented, Cooperative, No Acute Distress HEENT: Pupils Equal, Pupils Reactive, EOMI, Mucous Membr. Moist/[place] Neck: Supple, Trachea Midline, No JVD, No Thyromegaly Lungs: Clear to Auscultation, Normal Respiratory Effort Cardiovascular: Regular Rate, Regular Rhythm GI/Abdominal Exam: Normal Bowel Sounds, Soft, Non-Tender, No Organomegaly, No Distention, No Abnormal Bruit (Female) Exam: Deferred Back Exam: Normal Inspection, Decreased Range of Motion Extremities: Normal Inspection, Normal Range of Motion, No Pedal Edema, Normal Capillary Refill Peripheral Pulses: 2+: Dorsalis Pedis (L), Dorsalis Pedis (R) Skin: Warm, Dry, Intact Neurological: No New Focal Deficit Psy/Mental Status: Alert, Normal Affect, Normal Mood Consult PN Assessment/Plan POD#: 1 Procedures: Procedures CHEST X-RAY 2VW FRONTAL&LATL (04/06/17) MRI LUMBAR SPINE W/O DYE (11/07/13) X-RAY BEND ONLY L-S SPINE (11/07/13) X-RAY EXAM L-S SPINE 2/3 VWS (10/03/16) X-RAY EXAM NECK SPINE 2-3 VW (10/03/16) X-RAY EXAM THORAC SPINE 2VWS (10/03/16) Problem List Initiated/Reviewed/Updated: Yes Plan: Assessment: Acute: Post-Operative Care State - Patient is now stable - Continue to monitor for hemodynamic instability S/p Right Total Hip Arthroplasty - Stable - DVT and Pain Management as per primary team Hx/o Chronic Hip Pain S/p Right EMILY - Pain Management as per primary team Resolved: Post Operative Hypotension, Improved - Had an est blood loss of 700 ml - Bolus 1/2 of currently 1L LR then resume maintenance rate at 125 cc/hr - Monitor vitals Post-Operative Nausea/Vomiting, Resolved - Scopolamine Patch x1 - PRN anti-emesis Chronic: OA RAD Obesity with BMI of 31 Plan: She is now hemodynamically and clincially stable Routine AM labs Continue PT/OT IS q2 awake From the Hospitalist standpoint, we have no additional recommendations but to continue current treatment. We are now signing off on her case, please feel free to re-consult us if you still need further help.
--- NOTE | 2017-04-25 10:37 | PCM.DCSUM1 ---
Discharge Summary - Hospital Course Brief History: Kelly is a 57 yo female who underwent right EMILY with Dr. Luna on 04-23-2017. The procedure was completed under general anesthesia. The pt tolerated the procedure well and was admitted to the Medical-Surgical Unit. Medical management was provided by the Hospitalist service. The pt's Hospital course was uneventful. The pt's Hgb on POD#1 was 10.5. On POD#1, 325mg ASA BID was initiated for VTE prophylaxis. SCDs and TEDs were also ordered. A Mepilex dressing was placed at the incision site at the time of surgery and remained clean and dry. The pt participated in P.T. and O.T. and progressed well. She followed the EMILY precautions. The pt was allowed to WBAT. On POD#1 , the pt was deemed appropriate to discharge to home with her . - Discharge Data Discharge Date: 04/24/17 Discharge Disposition: Home, Self-Care 01 Condition: Good - Patient Summary/Data Operative Procedure(s) Performed: right total hip artrhoplasty Consults: Consultations 04/23/17 06:17 Consult to Physician [CONS] Routine OT Evaluation and Treatment [CONS] Urgent PT Evaluation and Treatment [CONS] Urgent - Patient Instructions Diet: Usual Diet as Tolerated Activity: Apply Ice, As Tolerated, Elevate Extremity, Full Weight Bearing Activity, Other: EMILY precautions. Driving: Do Not Drive Showering/Bathing: May Shower Wound/Incision Care: Keep Operative Site/Wound Site Clean and Dry, Do NOT Change Dressing Notify Provider of: Fever, Increased Pain, Swelling and Redness, Drainage, Nausea and/or Vomiting Other/Special Instructions: Please get up and moving around EVERY HOUR while awake. This helps to prevent blood clots. Starting 04-24-2017, please take 325mg aspirin TWICE daily - this also helps to prevent blood clots. The medication is being used for blood clot prevention and not for pain control, so please use the medication twice daily as directed. Please wear the NANCY hose during the day and you may remove them at night. Please schedule for P.T. Complete the P.T. exercises and stretches that were instructed in the Hospital. Follow the total hip precautions. Please use the pain medication and muscle relaxant as needed. The medication may cause drowsiness and/or constipation. You could use a stool softener like docusate sodium or Colace 100mg twice daily and/or a laxative like polyethylene glycol or Miralax daily for constipation. Contact your primary care provider for further instructions if you are constipated. Use the incentive spirometer often. Please place ice to the hip often. Please elevate the limb to decrease swelling. Keep the Mepilex dressing in place until follow-up. Please call [phone] with questions or concerns. - Discharge Plan Prescriptions/Med Rec: Acetaminophen/oxyCODONE [Percocet 325-5 MG] 1 - 2 tab PO Q4H PRN #60 tablet PRN Reason: Pain Aspirin [Ecotrin] 325 mg PO BID #70 tab.ec Cyclobenzaprine [Flexeril] 10 mg PO TID PRN #40 tablet PRN Reason: Spasms Home Medications: Home Meds Acetaminophen/oxyCODONE [Percocet 325-5 MG] 1 - 2 tab PO Q4H PRN #60 tablet [Rx] Bisacodyl [Dulcolax] 5 mg PO DAILY PRN #0 tablet 04/23/17 [Rx] Cyclobenzaprine [Flexeril] 10 mg PO TID PRN #40 tablet 04/23/17 [Rx] Docusate Sodium [Colace] 100 mg PO BID PRN cap 04/23/17 [Rx] Famotidine [Pepcid] 20 mg PO Q12H tablet 04/23/17 [Rx] Magnesium Hydroxide [Milk of Magnesia] 30 ml PO BID PRN cup 04/23/17 [Rx] Sennosides [Senna] 8.6 mg PO BID PRN tablet 04/23/17 [Rx] Aspirin [Ecotrin] 325 mg PO BID #70 tab.ec 04/24/17 [Rx] Patient Handouts: Total Hip Replacement, [id number], Total Hip Replacement, Care After, [id number] Referrals: Vivien Harding PA-C [Physician Child Nutrition Director] - (Please see Vivien Harding on Monday May 01, 2017 at 10:00 AM and on Monday May 08, 2017 at 10:00 AM.) - Patient Data Vitals - Most Recent: Last Vital Signs Temp 98.1 F 04/24/17 12:16 Pulse 79 04/24/17 12:16 Resp 16 04/24/17 12:16 BP 106/58 L 04/24/17 12:16 Pulse Ox 95 04/24/17 12:16 Weight - Most Recent: 181 lb 9.6 oz Med Orders - Current: Current Medications Discontinued Medications Aspirin (Ecotrin) 325 mg PO BID [facility] Last Admin: 04/24/17 09:45 Dose: 325 mg Bisacodyl (Dulcolax) 5 mg PO DAILY PRN PRN Reason: Constipation Bupivacaine HCl (Marcaine 0.25%) Confirm Administered Dose 30 ml .ROUTE .STK- MED ONE Stop: 04/23/17 06:21 Last Admin: 04/23/17 08:36 Dose: 30 ml Cefazolin Sodium (Ancef) Confirm Administered Dose 2 gm .ROUTE .STK-MED ONE Stop: 04/23/17 06:37 Last Admin: 04/23/17 08:30 Dose: 2 gm Cefazolin Sodium (Ancef) Confirm Administered Dose 2 gm .ROUTE .STK-MED ONE Stop: 04/23/17 06:21 Morphine Sulfate 8 mg/Epinephrine HCl 0.3 mg/Cefuroxime Sodium 750 mg/Ketorolac Tromethamine 30 mg/Sodium Chloride 27.9 ml 0 mg .XX ONETIME ONE Stop: 04/23/17 07:31 Last Admin: 04/23/17 08:35 Dose: 788.3 mg Cyclobenzaprine HCl (Flexeril) 10 mg PO TID PRN PRN Reason: Spasms Last Admin: 04/24/17 06:03 Dose: 10 mg Dexamethasone (Dexamethasone) Confirm Administered Dose 20 mg .ROUTE .STK-MED ONE Stop: 04/23/17 06:36 Diphenhydramine HCl (Benadryl) 25 mg IVPUSH Q4H PRN PRN Reason: Nausea Docusate Sodium (Colace) 100 mg PO BID PRN PRN Reason: Constipation Ephedrine Sulfate (Ephedrine Sulfate) Confirm Administered Dose 50 mg .ROUTE .STK-MED ONE Stop: 04/23/17 08:24 Famotidine (Pepcid) 20 mg PO Q12H [facility] Last Admin: 04/24/17 06:03 Dose: 20 mg Fentanyl (Sublimaze) Confirm Administered Dose 250 mcg .ROUTE .STK-MED ONE Stop: 04/23/17 06:36 Fentanyl (Sublimaze) 50 mcg IVPUSH Q5M PRN PRN Reason: Pain Stop: 04/23/17 11:00 Glycopyrrolate () Confirm Administered Dose 1 mg .ROUTE .STK-MED ONE Stop: 04/23/17 08:45 Hydromorphone HCl (Dilaudid) Confirm Administered Dose 1 mg .ROUTE .STK-MED ONE Stop: 04/23/17 06:36 Hydromorphone HCl (Dilaudid) Confirm Administered Dose 1 mg .ROUTE .STK-MED ONE Stop: 04/23/17 08:15 Hydromorphone HCl (Dilaudid) 0.5 mg IVPUSH Q15M PRN PRN Reason: severe pain Stop: 04/23/17 11:00 Lactated Ringer's (Ringers, Lactated) 1,000 mls @ 125 mls/hr IV ASDIRECTED [facility] Last Admin: 04/23/17 11:04 Dose: 125 mls/hr Acetaminophen (Ofirmev) 100 mls @ 400 mls/hr IV ONETIME ONE Stop: 04/23/17 06:14 Last Admin: 04/23/17 06:51 Dose: 400 mls/hr Lidocaine HCl (Xylocaine-Mpf 1%) Confirm Administered Dose 4 mls @ as directed .ROUTE .STK-MED ONE Stop: 04/23/17 06:36 Cefazolin Sodium/Dextrose 2 gm (/ Premix) 50 mls @ 100 mls/hr IV Q8H [facility] Stop: 04/23/17 22:59 Last Admin: 04/23/17 22:24 Dose: 100 mls/hr Lactated Ringer's (Ringers, Lactated) Confirm Administered Dose 1,000 mls @ as directed .ROUTE .STK-MED ONE Stop: 04/23/17 08:14 Lactated Ringer's (Ringers, Lactated) Confirm Administered Dose 1,000 mls @ as directed .ROUTE .STK-MED ONE Stop: 04/23/17 08:35 Lactated Ringer's (Ringers, Lactated) Confirm Administered Dose 1,000 mls @ as directed .ROUTE .STK-MED ONE Stop: 04/23/17 08:35 Influenza Virus Vaccine (Pharmacy To Dose - Influenza Vaccine) 1 each IM ONETIME ONE Stop: 04/23/17 08:30 Last Admin: 04/24/17 01:52 Dose: Not Given Influenza Virus Vaccine (Flulaval Quad [id number]) 60 mcg IM .ONCE ONE Stop: 04/23/17 08:46 Iodine (Iodine 2% Mild Tincture) Confirm Administered Dose 30 ml .ROUTE .STK- MED ONE Stop: 04/23/17 06:21 Last Admin: 04/23/17 08:27 Dose: 18 ml Ketamine HCl (Ketalar) Confirm Administered Dose 500 mg .ROUTE .STK-MED ONE Stop: 04/23/17 07:50 Ketorolac Tromethamine (Toradol) 15 mg IVPUSH Q6H PRN PRN Reason: Pain Last Admin: 04/24/17 13:48 Dose: 15 mg Ketorolac Tromethamine (Toradol) Confirm Administered Dose 30 mg .ROUTE .STK- MED ONE Stop: 04/23/17 07:54 Lidocaine/Sodium Bicarbonate (Buffered Lidocaine 1% In Ns 8.4%) 0.25 ml IV ONETIME PRN PRN Reason: Prior to IV Start Last Admin: 04/23/17 06:40 Dose: 0.25 ml Magnesium Hydroxide (Milk Of Magnesia) 30 ml PO BID PRN PRN Reason: Constipation Meperidine HCl (Demerol) 12.5 mg IVPUSH ONETIME PRN PRN Reason: shivering Stop: 04/23/17 11:00 Midazolam HCl (Versed 1 Mg/Ml) Confirm Administered Dose 2 mg .ROUTE .STK-MED ONE Stop: 04/23/17 06:36 Morphine Sulfate (Morphine) 2 mg IVPUSH Q2H PRN PRN Reason: Breakthrough Pain Naloxone HCl (Narcan) 0.1 mg IVPUSH Q5M PRN PRN Reason: Oversedation Neostigmine Methylsulfate (Neostigmine) Confirm Administered Dose 5 mg .ROUTE .STK-MED ONE Stop: 04/23/17 08:45 Ondansetron HCl (Zofran) Confirm Administered Dose 4 mg .ROUTE .STK-MED ONE Stop: 04/23/17 06:36 Ondansetron HCl (Zofran) 4 mg IVPUSH Q6H PRN PRN Reason: Nausea/Vomiting Last Admin: 04/23/17 11:40 Dose: 4 mg Ondansetron HCl (Zofran) 4 mg IVPUSH ONETIME PRN PRN Reason: Nausea/Vomiting Stop: 04/23/17 11:00 Oxycodone HCl (Oxycontin) 10 mg PO ASDIRECTED ONE Stop: 04/23/17 06:01 Last Admin: 04/23/17 06:50 Dose: 10 mg Oxycodone/Acetaminophen (Percocet 325-5 Mg) 1 - 2 tab PO Q4H PRN PRN Reason: Pain Last Admin: 04/24/17 06:01 Dose: 2 tab Phenylephrine HCl (Francois-Synephrine) Confirm Administered Dose 10 mg .ROUTE .STK- MED ONE Stop: 04/23/17 07:51 Pregabalin (Lyrica) 50 mg PO ASDIRECTED ONE Stop: 04/23/17 06:01 Last Admin: 04/23/17 06:49 Dose: 50 mg Propofol (Diprivan 20 Ml) Confirm Administered Dose 200 mg .ROUTE .STK-MED ONE Stop: 04/23/17 06:36 Rocuronium [place] (Zemuron) Confirm Administered Dose 50 mg .ROUTE .STK-MED ONE Stop: 04/23/17 06:36 Scopolamine (Transderm-Scop) 1.5 mg TOP ONETIME ONE Stop: 04/23/17 12:36 Last Admin: 04/23/17 13:49 Dose: 1.5 mg Senna (Senna) 8.6 mg PO BID PRN PRN Reason: Constipation Sodium Chloride (Saline Flush) 10 ml FLUSH ASDIRECTED PRN PRN Reason: Keep Vein Open Tranexamic Acid (Cyklokapron) Confirm Administered Dose 1,000 mg .ROUTE .STK- MED ONE Stop: 04/23/17 06:21 Last Admin: 04/23/17 08:46 Dose: 1,000 mg Vancomycin HCl (Vancomycin) Confirm Administered Dose 1 gm .ROUTE .STK-MED ONE Stop: 04/23/17 06:21 Last Admin: 04/23/17 08:37 Dose: 1 gm *Q Meaningful Use (DIS) - VTE *Q VTE Criteria *Q: - Stroke *Q Stroke Criteria *Q: - AMI *Q AMI Criteria *Q:
--- NOTE | 2017-04-30 07:40 | OR ---
DATE OF OPERATION: 04/23/2017 SURGEON: Abraham Luna MD OPERATION PERFORMED: Right total hip arthroplasty. PREOPERATIVE DIAGNOSIS: Right hip osteoarthrosis. POSTOPERATIVE DIAGNOSIS: Right hip osteoarthrosis. ANESTHESIA: Local MAC with spinal. ANESTHESIA PROVIDER: Steven Quiñones CRNA. ASSISTANTS: Vivien Harding PA-C and Yael Harris LPN. ESTIMATED BLOOD LOSS: 700 mL. COMPLICATIONS: None. CONDITION: Stable. IMPLANTS: 1. Leonidas size 56-mm solid Tritanium acetabular cup. 2. Size 5 Accolade II stem. 3. A 36-mm, +5 ceramic head. DESCRIPTION OF PROCEDURE: The patient was identified in the preoperative holding area. Proper site was marked and identified by the surgeon. The patient was taken back to the operating theater, where after adequate anesthesia, the patient was placed in the left lateral decubitus position. All bony prominences were well padded. An axillary roll was placed. Pegs were then placed and well padded. The patient's gluteal fold was parallel to the floor. At this time, the right hip was then sterilely prepped and draped in the usual sterile fashion. OR time-out was performed. The patient received 2 g of IV Ancef. A standard posterior incision was made centered over the greater trochanter. This was taken down to the IT band and gluteal fascia, which was incised along the incisional length. Charnley retractor was then placed. Identification of the short external rotators was done. Then, a capsulotomy and takedown of the short external rotators were done to the level of the lesser trochanter starting at the piriformis. At this time, the hip was dislocated. A neck cut guide was then placed. The neck cut was then completed. This was found to be an adequate resection. At this time, the anterior posterior acetabular retractors were placed. Pulvinar was removed along with any remaining labrum. Starting with a size 48 reamer, I was able to ream up to a 56, which was found to be stable with a trial implant. At this time, a 56-mm Tritanium acetabular cup was impacted into place, roughly 45 degrees of abduction and 20 degrees of anteversion. At this time, it was found to be in adequate position. A 10-degree elevated 36-mm liner was then impacted into place. Attention was turned to the femur. A femoral elevator was placed. A box chisel was used out laterally, and starter awl was placed down the canal. Starting with the 0 broach, I was able to broach to a size 5, which was found to be rotationally and vertically stable. A 127 degrees standard neck was then applied along with a 36-mm, 0 head. This was then brought through a range of motion and was found to be just short in leg lengths. At this time, the +5 was trialed, and was found to have adequate jewish of leg lengths. The trial implants were then removed. Size 5 Accolade II stem was then impacted into place along with a 36, +5-mm head. The hip was then relocated. One liter of dilute Betadine solution was irrigated through the hip along with 3 L of pulse lavage irrigation with Ancef. A periarticular injection was completed along with topical tranexamic acid and vancomycin powder. WOUND CLOSURE: The #5 Ethibond suture was used for closure of the short external rotators and capsule. At this time, a #2 ricky suture was used for closure of IT band and gluteal fascia, 2-0 Vicryl was used subcutaneously, and Prineo was used for the skin. DISPOSITION: The patient tolerated the procedure well and was sent to PACU in stable condition. TAYA /[id number]
== END 2017-04-24 14:20 | disposition home or self-care (01) | DRG 301 ==
LOC: JD.MS 06:10
PROVIDERS: ADMIT Orthopaedic Surgery; ATTEND Orthopaedic Surgery
PROC: 0SR9029 Replacement of Right Hip Joint with Metal on Polyethylene Synthetic Substitute, Cemented, Open Approach (ICD-10-PCS; principal; 2017-04-23)
DX: M16.11 Unilateral primary osteoarthritis, right hip (principal); E66.9 Obesity, unspecified; J45.909 Unspecified asthma, uncomplicated; H54.7 Unspecified visual loss; I95.81 Postprocedural hypotension; Z68.31 Body mass index [BMI] 31.0-31.9, adult
CPT/HCPCS: 01214; 36415; 73501-26-RT; 73501-RT; 80048; 80053; 85014; 85018; 85025; 86850; 86900; 86901; 87641; 93005; 97110-GP; 97116-GP; 97161-GP; 97165-GO; 97530-GO; 97535-GO; A9270-GY; C1776; J0171; J0690; J0697; J1100; J1170; J1885; J2250; J2270; J2370; J2405; J2704; J2710; J3010; J3370; J3490; J7120

== ENCOUNTER 2019-04-28 07:30 | Inpatient (IN) | payer BC ==
[~2019-04-28 07:30] MED LIST changes: +Acetaminophen 325 MG Tab PO SCH; +Albuterol 0.083% 2.5 MG/3 ML Neb Soln NEB PRN; +Bisacodyl 5 MG Tab PO PRN; +Lidocaine 1%/Sod Bicarbonate in NS 8.4% 1 ML Syringe IDERM PRN; -Lidocaine 1%/Sod Bicarbonate in NS 8.4% 1 ML Syringe IV PRN; +Magnesium Hydroxide 400 MG/5 ML Susp 30 ML Cup PO PRN; +Morphine 2 MG/ML Syringe IVPUSH PRN; +Naloxone 0.4 MG/ML SDV IVPUSH PRN; +Ondansetron 4 MG/2 ML SDV IVPUSH PRN; -Pregabalin 25 MG Cap PO ONE; +Pregabalin 25 MG Cap PO SCH; +Sennosides 8.6 MG Tab PO PRN; -oxyCODONE ER 10 MG TAB.ER PO ONE; +oxyCODONE ER 10 MG TAB.ER PO SCH
[2019-04-28] MEDS ORDERED: Scopolamine 1.5 MG Transdermal Patch TRDERM PRN (08:00)
[2019-04-28] MEDS ORDERED: Scopolamine 1.5 MG Transdermal Patch TOP SCH (09:45)
[2019-04-28] MEDS: Lactated Ringers 1,000 ML IV SCH ×2 (10:35→15:30)
[2019-04-28] MEDS ORDERED: Iodine/Sodium Iodide 2% Tincture 30 ML Bottle ONE (11:34)
[2019-04-28] MEDS ORDERED: fentaNYL 100 MCG/2 ML SDV ONE (11:38)
[2019-04-28] MEDS ORDERED: Propofol 200 MG/20 ML SDV ONE (11:38)
[2019-04-28] MEDS ORDERED: Midazolam 1 MG/ML 2 ML SDV ONE ×2 (11:38→12:46)
[2019-04-28] MEDS ORDERED: Lidocaine 1% 4 ML ONE (11:39)
[2019-04-28] MEDS ORDERED: Ondansetron 4 MG/2 ML SDV ONE (11:39)
[2019-04-28] MEDS ORDERED: Ketamine 500 mg/10 ML MDV ONE (11:39)
[2019-04-28] MEDS ORDERED: Dexamethasone 4 MG/ML 5 ML MDV ONE (11:39)
[2019-04-28] MEDS ORDERED: Ketorolac 30 MG/ML SDV ONE (11:39)
--- NOTE | 2019-04-28 11:53 | PCM.PREANE ---
Preanesthetic Assessment - Procedure Proposed Procedure: left total hip arthroplasty - Anesthesia/Transfusion/Family Hx Type of Anesthesia Reaction: Other (see below) (nausea after total in past when she got up) Family History of Anesthesia Reaction: No Transfusion History: No Prior Transfusion(s) Intubation History: Unknown - Review of Systems General: No Symptoms Pulmonary: No Symptoms Cardiovascular: No Symptoms Gastrointestinal: No Symptoms Neurological: No Symptoms Other: Reports: None - Physical Assessment NPO Status Date: 04/27/19 NPO Status Time: 18:45 Vital Signs: Last Vital Signs Temp 98.1 F 04/28/19 10:05 Pulse 66 04/28/19 10:05 Resp 16 04/28/19 10:05 BP 115/80 04/28/19 10:05 Pulse Ox 96 04/28/19 11:18 Height: 5 ft 2 in Weight: 81.647 kg ASA Class: 2 Mental Status: Alert & Oriented x3 Airway Class: Mallampati = 1 Dentition: Reports: Normal Dentition Thyro-Mental Finger Breadths: 3 Mouth Opening Finger Breadths: 3 ROM/Head Extension: Full Lungs: Clear to Auscultation, Normal Respiratory Effort Cardiovascular: Regular Rate, Regular Rhythm - Lab Values: Laboratory Last Values Blood Type A POSITIVE 04/28/19 10:28 Gel Antibody Screen Negative 04/28/19 10:28 - Allergies Allergies/Adverse Reactions: Allergies Allergy/AdvReac Type Severity Reaction Status Date / Time No Known Allergies Allergy Verified 04/20/17 15:56 - Blood Blood Available: No - Acknowledgements Anesthesia Type Planned: General Anesthesia, Spinal Pt an Appropriate Candidate for the Planned Anesthesia: Yes Alternatives and Risks of Anesthesia Discussed w Pt/Guardian: Yes Pt/Guardian Understands and Agrees with Anesthesia Plan: Yes PreAnesthesia Questionnaire HEENT History: Reports: Impaired Vision, Other (See Below) Other HEENT History: wears glasses Cardiovascular History: Reports: None Respiratory History: Reports: Asthma, Bronchitis, Recurrent, Other (See Below) Other Respiratory History: cough, reactive airway disease, wheezing- prn spring time Gastrointestinal History: Reports: None Genitourinary History: Reports: None 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: Musculoskeletal History: Reports: Arthritis Neurological History: Reports: None Psychiatric History: Reports: None Endocrine/Metabolic History: Reports: None, Obesity/BMI 30+ Hematologic History: Reports: None Immunologic History: Reports: None Oncologic (Cancer) History: Reports: None Dermatologic History: Reports: None - Infectious Disease History Infectious Disease History: Reports: Chicken Pox - Past Surgical History Head Surgeries/Procedures: Reports: None Cardiovascular Surgical History: Reports: None Respiratory Surgical History: Reports: None GI Surgical History: Reports: Cholecystectomy Female Surgical History: Reports: None Male Surgical History: Reports: None Endocrine Surgical History: Reports: None Neurological Surgical History: Reports: None Musculoskeletal Surgical History: Reports: None, Hip Replacement Oncologic Surgical History: Reports: None Dermatological Surgical History: Reports: None - History Comment History Comment: no rx meds- cod liver oil- vit d - SUBSTANCE USE Smoking Status *Q: Never Smoker Tobacco Use Within Last Twelve Months: No Second Hand Smoke Exposure: No Days Per Week of Alcohol Use: 0 Recreational Drug Use History: No - CURRENT (IN HOUSE) MEDS Current Meds: Current Medications Acetaminophen (Tylenol) 975 mg PO ONETIME FELICIA Stop: 04/28/19 16:00 Last Admin: 04/28/19 11:00 Dose: 975 mg Albuterol (Proventil Neb Soln) 2.5 mg NEB ONETIME PRN PRN Reason: bronchodiltion Stop: 04/28/19 18:00 Last Admin: 04/28/19 11:18 Dose: 2.5 mg Aspirin (Ecotrin) 325 mg PO BID FELICIA Bisacodyl (Dulcolax) 5 mg PO DAILY PRN PRN Reason: Constipation Docusate Sodium (Colace) 100 mg PO BID FELICIA Famotidine (Pepcid) 20 mg PO Q12H [facility] Lactated Ringer's (Ringers, Lactated) 1,000 mls @ 125 mls/hr IV ASDIRECTED [facility] Stop: 04/28/19 23:00 Last Admin: 04/28/19 10:35 Dose: 125 mls/hr Cefazolin Sodium/Dextrose 2 gm (/ Premix) 50 mls @ 100 mls/hr IV Q8H [facility] Stop: 04/28/19 23:44 Ketorolac Tromethamine (Toradol) 15 mg IVPUSH Q6H PRN PRN Reason: Pain Lidocaine/Sodium Bicarbonate (Buffered Lidocaine 1% In Ns 8.4%) 0.25 ml IDERM ONETIME PRN PRN Reason: Prior to IV Start Stop: 04/28/19 18:00 Last Admin: 04/28/19 10:30 Dose: 0.25 ml Magnesium Hydroxide (Milk Of Magnesia) 30 ml PO BID PRN PRN Reason: Constipation Morphine Sulfate (Morphine) 2 mg IVPUSH Q2H PRN PRN Reason: Breakthrough Pain Naloxone HCl (Narcan) 0.1 mg IVPUSH Q5M PRN PRN Reason: Oversedation Ondansetron HCl (Zofran) 4 mg IVPUSH Q6H PRN PRN Reason: Nausea/Vomiting Oxycodone HCl (Oxycontin) 10 mg PO ONETIME FELICIA Stop: 04/28/19 16:00 Last Admin: 04/28/19 11:00 Dose: 10 mg Oxycodone/Acetaminophen (Percocet 325-5 Mg) 1 - 2 tab PO Q4H PRN PRN Reason: Pain Pregabalin (Lyrica) 50 mg PO ONETIME FELICIA Stop: 04/28/19 16:00 Last Admin: 04/28/19 11:01 Dose: 50 mg Scopolamine (Transderm-Scop) 1.5 mg TOP ONETIME FELICIA Stop: 04/28/19 12:00 Last Admin: 04/28/19 10:17 Dose: 1.5 mg Senna (Senna) 8.6 mg PO BID PRN PRN Reason: Constipation Sodium Chloride (Saline Flush) 10 ml FLUSH ASDIRECTED PRN PRN Reason: Keep Vein Open Stop: 04/28/19 18:00 Discontinued Medications Bupivacaine HCl (Sensorcaine-Mpf 0.25%) Confirm Administered Dose 30 ml .ROUTE .STK-MED ONE Stop: 04/28/19 11:35 Cefazolin Sodium (Ancef) Confirm Administered Dose 2 gm .ROUTE .STK-MED ONE Stop: 04/28/19 11:35 Morphine Sulfate 8 mg/Epinephrine HCl 0.3 mg/Cefuroxime Sodium 750 mg/Ketorolac Tromethamine 30 mg/Sodium Chloride 27.9 ml 0 mg .XX ONETIME ONE Stop: 04/28/19 09:01 Dexamethasone (Dexamethasone) Confirm Administered Dose 20 mg .ROUTE .STK-MED ONE Stop: 04/28/19 11:40 Fentanyl (Sublimaze) Confirm Administered Dose 100 mcg .ROUTE .STK-MED ONE Stop: 04/28/19 11:39 Lidocaine HCl (Xylocaine-Mpf 1%) Confirm Administered Dose 4 mls @ as directed .ROUTE .STK-MED ONE Stop: 04/28/19 11:40 Iodine (Iodine 2% Mild Tincture) Confirm Administered Dose 30 ml .ROUTE .STK- MED ONE Stop: 04/28/19 11:35 Ketamine HCl (Ketalar) Confirm Administered Dose 500 mg .ROUTE .STK-MED ONE Stop: 04/28/19 11:40 Ketorolac Tromethamine (Toradol) Confirm Administered Dose 30 mg .ROUTE .STK- MED ONE Stop: 04/28/19 11:40 Midazolam HCl (Versed 1 Mg/Ml) Confirm Administered Dose 2 mg .ROUTE .STK-MED ONE Stop: 04/28/19 11:39 Ondansetron HCl (Zofran) Confirm Administered Dose 4 mg .ROUTE .STK-MED ONE Stop: 04/28/19 11:40 Propofol (Diprivan 20 Ml) Confirm Administered Dose 600 mg .ROUTE .STK-MED ONE Stop: 04/28/19 11:39 Scopolamine (Transderm-Scop) 1.5 mg TRDERM ONETIME PRN PRN Reason: PONV Stop: 04/28/19 08:01 Tranexamic Acid (Cyklokapron) Confirm Administered Dose 1,000 mg .ROUTE .STK- MED ONE Stop: 04/28/19 11:35 Vancomycin HCl (Vancomycin) Confirm Administered Dose 1 gm .ROUTE .STK-MED ONE Stop: 04/28/19 11:35
[2019-04-28] MEDS ORDERED: Ketorolac 15 MG/ML SDV IVPUSH PRN (12:00)
[2019-04-28] MEDS ORDERED: ceFAZolin 1 GM Vial ONE (13:16)
[2019-04-28] MEDS: ceFAZolin 1 GM Vial ONE ×2 (13:31→14:04)
[2019-04-28] MEDS: Bupivacaine 0.25% 10 ML SDV ONE ×2 (13:32→14:10)
[2019-04-28] MEDS: Morphine 8 MG, EPINEPHrine 0.3 MG, Cefuroxime 750 MG, Ketorolac 30 MG, Sodium Chloride ... ONE ×10 (13:32→14:09)
[2019-04-28] MEDS: Vancomycin 1 GM SDV ONE ×2 (13:34→14:11)
[2019-04-28] MEDS ORDERED: HYDROmorphone 0.5 MG/0.5 ML Syringe IVPUSH PRN (13:41)
[2019-04-28] MEDS ORDERED: Ondansetron 4 MG/2 ML SDV IVPUSH PRN (13:41)
[2019-04-28] MEDS ORDERED: fentaNYL 100 MCG/2 ML SDV IVPUSH PRN (13:41)
--- NOTE | 2019-04-28 15:10 | PCM.POSTAN ---
POST ANESTHESIA ASSESSMENT - MENTAL STATUS Mental Status: Alert, Oriented - VITAL SIGNS Vital Signs: Last Vital Signs Temp 36.2 C 04/28/19 14:39 Pulse 76 04/28/19 15:00 Resp 15 04/28/19 15:00 BP 93/63 04/28/19 15:00 Pulse Ox 95 04/28/19 15:00 - RESPIRATORY Respiratory Status: Respiratory Rate WNL, Airway Patent, O2 Saturation Stable, Supplemental Oxygen - CARDIOVASCULAR CV Status: Pulse Rate WNL, Blood Pressure Stable - GASTROINTESTINAL GI Status: No Symptoms - PAIN Pain Score: 0 - POST OP HYDRATION Hydration Status: Adequate & Stable
--- NOTE | 2019-04-28 15:22 | CR ---
Pelvis and left hip: AP view of pelvis was obtained as well as AP and crosstable lateral views of the left hip. Hip prosthesis are noted. Left hip prosthesis has been recently placed. Soft tissue air is noted around the left hip. Slight degenerative change is noted within the lumbar spine. No fracture or other abnormality is seen. Impression: 1. Recently placed left hip prosthesis which has a normal radiographic appearance. Soft tissue air as expected around the left hip. 2. Other findings which are believed to be incidental. Diagnostic code #2
[2019-04-28] MEDS: Acetaminophen/oxyCODONE 325-5 MG Tab PO PRN (17:47)
[2019-04-28] MEDS: ceFAZolin 2 GM in Premix Bag 1 BAG IV SCH (22:00)
[2019-04-28] MEDS: Famotidine 20 MG Tab PO SCH (22:01)
[2019-04-28] MEDS: Docusate Sodium 100 MG Cap PO SCH (22:01)
[2019-04-29] MEDS: ceFAZolin 2 GM in Premix Bag 1 BAG IV SCH ×2 (04:31→15:46)
--- NOTE | 2019-04-29 06:34 | PCM.SURGPN ---
- General Info Date of Service: 04/29/19 POD#: 1 Functional Status: Reports: Pain Controlled, Tolerating Diet, Ambulating, Urinating, Incentive Spirometry, Other (The pt states she is doing well.) - Review of Systems General: Denies: Fever, Chills Pulmonary: Denies: Shortness of Breath Cardiovascular: Denies: Chest Pain - Patient Data Vitals - Most Recent: Last Vital Signs Temp 97.9 F 04/29/19 04:28 Pulse 63 04/29/19 04:28 Resp 16 04/29/19 04:28 BP 91/49 L 04/29/19 04:28 Pulse Ox 95 04/29/19 04:28 Weight - Most Recent: 189 lb 3.2 oz I&O - Last 24 Hours: Intake & Output 04/28/19 04/28/19 04/29/19 14:59 22:59 06:59 Intake Total 650 1050 Balance 650 1050 Lab Results Last 24 Hrs: Laboratory Results - last 24 hr 04/28/19 04/29/19 04/29/19 Range/Units 10:28 05:15 05:15 WBC 19.72 H (3.98-10.04) K/mm3 RBC 4.00 (3.98-5.22) M/mm3 Hgb 12.0 D (11.2-15.7) gm/dl Hct 35.9 (34.1-44.9) % MCV 89.8 (79.4-94.8) fl MCH 30.0 (25.6-32.2) pg MCHC 33.4 (32.2-35.5) g/dl RDW Std Deviation 39.2 (36.4-46.3) fL Plt Count 262 (182-369) K/mm3 MPV 10.1 (9.4-12.3) fl Sodium 138 (136-145) mEq/L Potassium 4.8 (3.5-5.1) mEq/L Chloride 104 (98-107) mEq/L Carbon Dioxide 26 (21-32) mEq/L Anion Gap 12.8 (5-15) BUN 12 (7-18) mg/dL Creatinine 1.0 (0.55-1.02) mg/dL Est Cr Clr Drug Dosing 47.32 mL/min Estimated GFR (MDRD) 57 (>60) mL/min BUN/Creatinine Ratio 12.0 L (14-18) Glucose 127 H (74-106) mg/dL Calcium 8.8 (8.5-10.1) mg/dL Total Bilirubin 0.6 (0.2-1.0) mg/dL AST 57 H (15-37) U/L ALT 81 H (14-59) U/L Alkaline Phosphatase 79 (46-116) U/L Total Protein 6.3 L (6.4-8.2) g/dl Albumin 3.1 L (3.4-5.0) g/dl Globulin 3.2 gm/dL Albumin/Globulin Ratio 1.0 (1-2) Blood Type A POSITIVE Gel Antibody Screen Negative Med Orders - Current: Current Medications Aspirin (Ecotrin) 325 mg PO BID [facility] Bisacodyl (Dulcolax) 5 mg PO DAILY PRN PRN Reason: Constipation Docusate Sodium (Colace) 100 mg PO BID [facility] Last Admin: 04/28/19 22:01 Dose: 100 mg Famotidine (Pepcid) 20 mg PO Q12H [facility] Last Admin: 04/28/19 22:01 Dose: 20 mg Cefazolin Sodium/Dextrose 2 gm (/ Premix) 50 mls @ 100 mls/hr IV Q8H [facility] Stop: 04/29/19 13:29 Last Admin: 04/29/19 04:31 Dose: 100 mls/hr Ketorolac Tromethamine (Toradol) 15 mg IVPUSH Q6H PRN PRN Reason: Pain Magnesium Hydroxide (Milk Of Magnesia) 30 ml PO BID PRN PRN Reason: Constipation Morphine Sulfate (Morphine) 2 mg IVPUSH Q2H PRN PRN Reason: Breakthrough Pain Naloxone HCl (Narcan) 0.1 mg IVPUSH Q5M PRN PRN Reason: Oversedation Ondansetron HCl (Zofran) 4 mg IVPUSH Q6H PRN PRN Reason: Nausea/Vomiting Oxycodone/Acetaminophen (Percocet 325-5 Mg) 1 - 2 tab PO Q4H PRN PRN Reason: Pain Last Admin: 04/28/19 17:47 Dose: 2 tab Senna (Senna) 8.6 mg PO BID PRN PRN Reason: Constipation Discontinued Medications Acetaminophen (Tylenol) 975 mg PO ONETIME [facility] Stop: 04/28/19 16:00 Last Admin: 04/28/19 11:00 Dose: 975 mg Albuterol (Proventil Neb Soln) 2.5 mg NEB ONETIME PRN PRN Reason: bronchodiltion Stop: 04/28/19 18:00 Last Admin: 04/28/19 11:18 Dose: 2.5 mg Bupivacaine HCl (Sensorcaine-Mpf 0.25%) Confirm Administered Dose 30 ml .ROUTE .STK-MED ONE Stop: 04/28/19 11:35 Last Admin: 04/28/19 14:10 Dose: 30 ml Cefazolin Sodium (Ancef) Confirm Administered Dose 2 gm .ROUTE .STK-MED ONE Stop: 04/28/19 11:35 Last Admin: 04/28/19 14:04 Dose: 2 gm Cefazolin Sodium (Ancef) Confirm Administered Dose 2 gm .ROUTE .STK-MED ONE Stop: 04/28/19 13:17 Morphine Sulfate 8 mg/Epinephrine HCl 0.3 mg/Cefuroxime Sodium 750 mg/Ketorolac Tromethamine 30 mg/Sodium Chloride 27.9 ml 0 mg .XX ONETIME ONE Stop: 04/28/19 09:01 Last Admin: 04/28/19 14:09 Dose: 788.3 mg Dexamethasone (Dexamethasone) Confirm Administered Dose 20 mg .ROUTE .STK-MED ONE Stop: 04/28/19 11:40 Fentanyl (Sublimaze) Confirm Administered Dose 100 mcg .ROUTE .STK-MED ONE Stop: 04/28/19 11:39 Fentanyl (Sublimaze) 50 mcg IVPUSH Q5M PRN PRN Reason: Pain Stop: 04/28/19 15:30 Hydromorphone HCl (Dilaudid) 0.5 mg IVPUSH Q10M PRN PRN Reason: Pain (severe 7-10) Stop: 04/28/19 15:30 Lactated Ringer's (Ringers, Lactated) 1,000 mls @ 125 mls/hr IV ASDIRECTED FELICIA Stop: 04/28/19 23:00 Last Admin: 04/28/19 15:30 Dose: 125 mls/hr Lidocaine HCl (Xylocaine-Mpf 1%) Confirm Administered Dose 4 mls @ as directed .ROUTE .STK-MED ONE Stop: 04/28/19 11:40 Iodine (Iodine 2% Mild Tincture) Confirm Administered Dose 30 ml .ROUTE .ST- MED ONE Stop: 04/28/19 11:35 Ketamine HCl (Ketalar) Confirm Administered Dose 500 mg .ROUTE .STK-MED ONE Stop: 04/28/19 11:40 Ketorolac Tromethamine (Toradol) Confirm Administered Dose 30 mg .ROUTE .STK- MED ONE Stop: 04/28/19 11:40 Lidocaine/Sodium Bicarbonate (Buffered Lidocaine 1% In Ns 8.4%) 0.25 ml IDERM ONETIME PRN PRN Reason: Prior to IV Start Stop: 04/28/19 18:00 Last Admin: 04/28/19 10:30 Dose: 0.25 ml Midazolam HCl (Versed 1 Mg/Ml) Confirm Administered Dose 2 mg .ROUTE .STK-MED ONE Stop: 04/28/19 11:39 Midazolam HCl (Versed 1 Mg/Ml) Confirm Administered Dose 2 mg .ROUTE .[facility]-MED ONE Stop: 04/28/19 12:47 Ondansetron HCl (Zofran) Confirm Administered Dose 4 mg .ROUTE .ST-MED ONE Stop: 04/28/19 11:40 Ondansetron HCl (Zofran) 4 mg IVPUSH ONETIME PRN PRN Reason: Nausea/Vomiting Stop: 04/28/19 15:30 Oxycodone HCl (Oxycontin) 10 mg PO ONETIME FELICIA Stop: 04/28/19 16:00 Last Admin: 04/28/19 11:00 Dose: 10 mg Pregabalin (Lyrica) 50 mg PO ONETIME FELICIA Stop: 04/28/19 16:00 Last Admin: 04/28/19 11:01 Dose: 50 mg Propofol (Diprivan 20 Ml) Confirm Administered Dose 600 mg .ROUTE .ST-MED ONE Stop: 04/28/19 11:39 Scopolamine (Transderm-Scop) 1.5 mg TRDERM ONETIME PRN PRN Reason: PONV Stop: 04/28/19 08:01 Scopolamine (Transderm-Scop) 1.5 mg TOP ONETIME FELICIA Stop: 04/28/19 12:00 Last Admin: 04/28/19 10:17 Dose: 1.5 mg Sodium Chloride (Saline Flush) 10 ml FLUSH ASDIRECTED PRN PRN Reason: Keep Vein Open Stop: 04/28/19 18:00 Tranexamic Acid (Cyklokapron) Confirm Administered Dose 1,000 mg .ROUTE .STK- MED ONE Stop: 04/28/19 11:35 Last Admin: 04/28/19 14:11 Dose: 1,000 mg Vancomycin HCl (Vancomycin) Confirm Administered Dose 1 gm .ROUTE .STK-MED ONE Stop: 04/28/19 11:35 Last Admin: 04/28/19 14:11 Dose: 1 gm - Exam Wound/Incisions: Dressing Dry and Intact General: Alert, Cooperative, No Acute Distress Lungs: Normal Respiratory Effort Extremities: Other (NVS intact for LLE. Meghan's negative. Left thigh soft.) - Problem List Review Problem List Initiated/Reviewed/Updated: Yes - My Orders Last 24 Hours: Active Orders 24 hr Category Date Time Status Patient Status [ADT] Routine ADT 04/28/19 07:05 Active Ambulate [RC] PER UNIT ROUTINE Care 04/28/19 07:05 Active Antiembolic Devices [RC] BID Care 04/28/19 07:06 Active Cooling Warming Measures [RC] ASDIRECTED Care 04/28/19 13:41 Inactive May Shower [RC] ASDIRECTED Care 04/28/19 07:05 Active Oxygen Therapy [RC] PRN Care 04/28/19 07:05 Active Pulse Oximetry [RC] ASDIRECTED Care 04/28/19 13:41 Active RT Incentive Spirometry [RC] Q1HWA Care 04/28/19 07:04 Active Ready for Discharge [RC] PER UNIT ROUTINE Care 04/29/19 06:34 Ordered Up to Chair [RC] ASDIRECTED Care 04/28/19 07:05 Active Vital Signs [RC] Q15M Care 04/28/19 13:41 Inactive Vital Signs [RC] Q4HR Care 04/28/19 07:05 Active OT Evaluation and Treatment [CONS] Routine Cons 04/28/19 07:04 Active PT Evaluation and Treatment [CONS] Routine Cons 04/28/19 07:04 Active Regular Diet [DIET] Diet 04/28/19 Lunch Active Acetaminophen/oxyCODONE [Percocet 325-5 MG] Med 04/28/19 07:04 Active 1 - 2 tab PO Q4H PRN Aspirin [Ecotrin] Med 04/29/19 09:00 Active 325 mg PO BID Bisacodyl [Dulcolax] Med 04/28/19 07:05 Active 5 mg PO DAILY PRN Docusate Sodium [Colace] Med 04/28/19 21:00 Active 100 mg PO BID Famotidine [Pepcid] Med 04/28/19 21:00 Active 20 mg PO Q12H Ketorolac [Toradol] Med 04/28/19 12:00 Active 15 mg IVPUSH Q6H PRN Magnesium Hydroxide [Milk of Magnesia] Med 04/28/19 07:05 Active 30 ml PO BID PRN Morphine Med 04/28/19 07:05 Active 2 mg IVPUSH Q2H PRN Naloxone [Narcan] Med 04/28/19 07:05 Active 0.1 mg IVPUSH Q5M PRN Ondansetron [Zofran] Med 04/28/19 07:05 Active 4 mg IVPUSH Q6H PRN Sennosides [Senna] Med 04/28/19 07:05 Active 8.6 mg PO BID PRN ceFAZolin [Ancef] 2 gm Med 04/28/19 21:00 Active Premix Bag 1 bag IV Q8H Antiembolic Hose [OM.PC] Per Unit Routine Oth 04/28/19 07:07 Ordered Hip Precautions Posterior [OM.PC] Routine Oth 04/28/19 07:04 Ordered Ice Therapy [OM.PC] Per Unit Routine Oth 04/28/19 07:06 Ordered Sequential Compression Device [OM.PC] Per Unit Routine Oth 04/28/19 07:04 Ordered Resuscitation Status Routine Resus Stat 04/28/19 07:05 Ordered Medication Orders Aspirin (Ecotrin) 325 mg PO BID FELICIA Bisacodyl (Dulcolax) 5 mg PO DAILY PRN PRN Reason: Constipation Docusate Sodium (Colace) 100 mg PO BID [facility] Last Admin: 04/28/19 22:01 Dose: 100 mg Famotidine (Pepcid) 20 mg PO Q12H [facility] Last Admin: 04/28/19 22:01 Dose: 20 mg Cefazolin Sodium/Dextrose 2 gm (/ Premix) 50 mls @ 100 mls/hr IV Q8H [facility] Stop: 04/29/19 13:29 Last Admin: 04/29/19 04:31 Dose: 100 mls/hr Infusion: 04/28/19 22:30 Dose: 100 mls/hr Admin: 04/28/19 22:00 Dose: 100 mls/hr Ketorolac Tromethamine (Toradol) 15 mg IVPUSH Q6H PRN PRN Reason: Pain Magnesium Hydroxide (Milk Of Magnesia) 30 ml PO BID PRN PRN Reason: Constipation Morphine Sulfate (Morphine) 2 mg IVPUSH Q2H PRN PRN Reason: Breakthrough Pain Naloxone HCl (Narcan) 0.1 mg IVPUSH Q5M PRN PRN Reason: Oversedation Ondansetron HCl (Zofran) 4 mg IVPUSH Q6H PRN PRN Reason: Nausea/Vomiting Oxycodone/Acetaminophen (Percocet 325-5 Mg) 1 - 2 tab PO Q4H PRN PRN Reason: Pain Last Admin: 04/28/19 17:47 Dose: 2 tab Senna (Senna) 8.6 mg PO BID PRN PRN Reason: Constipation - Assessment Assessment (Free Text/Narrative):: POD#1 - left EMILY - Plan Plan (Free Text/Narrative):: 1. Discharge to home today if inpt therapy goals met. 2. 325mg ASA PO BID for VTE prophylaxis. TEDs, frequent mobility. 3. Outpatient therapy. EMILY precautions. 4. Hgb 12.0. The pt's case was discussed with Dr. Luna.
[2019-04-29] MEDS: Acetaminophen/oxyCODONE 325-5 MG Tab PO PRN ×2 (08:30→13:42)
--- NOTE | 2019-04-29 08:49 | PCM48HPAN ---
Post Anesthesia Note - EVALUATION WITHIN 48HRS OF ANESTHETIC Vital Signs in Normal Range: Yes Patient Participated in Evaluation: Yes Respiratory Function Stable: Yes Airway Patent: Yes Cardiovascular Function Stable: Yes Hydration Status Stable: Yes Pain Control Satisfactory: Yes Nausea and Vomiting Control Satisfactory: Yes Mental Status Recovered: Yes Vital Signs: Last Vital Signs Temp 36.6 C 04/29/19 04:28 Pulse 63 04/29/19 04:28 Resp 16 04/29/19 04:28 BP 91/49 L 04/29/19 04:28 Pulse Ox 95 04/29/19 04:28
[2019-04-29] MEDS ORDERED: Aspirin 325 MG Tab.EC PO SCH (09:00)
[2019-04-29] MEDS: Famotidine 20 MG Tab PO SCH (09:56)
[2019-04-29] MEDS: Docusate Sodium 100 MG Cap PO SCH (09:56)
--- NOTE | 2019-05-01 13:40 | PCM.DCSUM1 ---
Discharge Summary - Hospital Course Brief History: Kelly is a 59 yo female who underwent left EMILY with Dr. Luna on 04-28-2019. The procedure was completed under spinal anesthesia. The pt tolerated the procedure well and was transferred to the Medical-Surgical Unit. The pt's Hospital course was uneventful. The pt's Hgb on POD#1 was 12.0. On POD#1, 325mg ASA BID was initiated for VTE prophylaxis. SCDs and TEDs were also ordered. A Mepilex dressing was placed at the incision site at the time of surgery and remained clean and dry. The pt participated in P.T. and O.T. and progressed well. She followed the EMILY precautions. The pt was allowed to WBAT. On POD#1, the pt was deemed appropriate to discharge to home with her . - Discharge Data Discharge Date: 04/29/19 Discharge Disposition: Home, Self-Care 01 Condition: Good - Referral to Home Health Primary Care Physician: Deysi Sanders III, MD - Patient Summary/Data Consults: Consultations 04/28/19 07:04 OT Evaluation and Treatment [CONS] Routine PT Evaluation and Treatment [CONS] Routine - Patient Instructions Diet: Usual Diet as Tolerated Activity: Apply Ice, As Tolerated, Elevate Extremity, Full Weight Bearing Activity, Other: Follow the total hip precautions. Driving: Do Not Drive Showering/Bathing: May Shower Wound/Incision Care: Keep Operative Site/Wound Site Clean and Dry, Do NOT Change Dressing Notify Provider of: Fever, Increased Pain, Swelling and Redness, Drainage, Nausea and/or Vomiting Other/Special Instructions: Please get up and moving around EVERY HOUR while awake. This helps to prevent blood clots. Please use your walker and have help with mobility as needed. Take a short walk in your home every hour while awake. Please take 325mg Aspirin TWICE daily. The aspirin is being used for blood clot prevention and not for pain management so please do not miss a dose of the medication. You could use a medication like Pepcid or Tagamet and a medication like Prilosec or Nexium to protect your stomach while you are using the aspirin. At home, please complete the exercises that you learned during the Hospital stay. Schedule for physical therapy. Use the pain medication as needed. The medication may cause drowsiness and constipation. Contact your primary care provider for instructions if you are constipated. You may use a stool softener like docusate sodium or Colace 100mg twice daily and/or a laxative like Miralax daily for constipation. Increase your water and fiber intake while you are using the pain medication. Discontinue use of the pain medication as soon as able. Please do not use other medications that may cause drowsiness (other pain medications, anxiety pills, cold medications, sleeping pills, etc) while using the prescription pain medication. Do not use alcohol while using the pain medication. You may use acetaminophen or Tylenol for pain management, however, please ensure you are not using over 4000 mg or 4 grams of acetaminophen per day from all sources. Your pain medication has 325mg of acetaminophen per tablet. At this time, please do not use ibuprofen (Motrin, Advil) or naproxen (Aleve) for pain management as you are using the aspirin. When the aspirin course is completed in 4 to 6 weeks, you could use ibuprofen or naproxen for pain management (if this is allowed by your primary care provider). Wear the NANCY hose during the day and you may remove these at night. Elevate the limb to decrease swelling. Place ice to the area often. Place a towel between your skin and the blue pad. Use the incentive spirometer often. Take deep breaths throughout the day. Please keep the dressing in place until follow-up. Notify the Clinic if the dressing becomes saturated. Increase your protein intake while you are healing. If you have diabetes, please closely monitor your blood sugars and notify your primary care provider with abnormal values. Elevated blood sugars increases the risk of infection. Call the Clinic with questions or concerns - [phone]. - Discharge Plan *PRESCRIPTION DRUG MONITORING PROGRAM REVIEWED*: No *COPY OF PRESCRIPTION DRUG MONITORING REPORT IN PATIENT JAZZMINE: No Prescriptions/Med Rec: Acetaminophen/oxyCODONE [Percocet 325-5 MG] 1 - 2 tab PO Q4H PRN #60 tablet PRN Reason: Pain Cyclobenzaprine [Flexeril] 10 mg PO Q8H PRN #40 tab PRN Reason: Spasms Home Medications: Home Meds Cholecalciferol (Vitamin D3) [Vitamin D] 3,000 unit PO DAILY 04/28/19 [History] Sulphzyme. 2 tab PO DAILY 04/28/19 [History] Acetaminophen/oxyCODONE [Percocet 325-5 MG] 1 - 2 tab PO Q4H PRN #60 tablet [Rx] Aspirin [Ecotrin EC] 325 mg PO BID #0 tab.ec 04/29/19 [Rx] Bisacodyl [Dulcolax] 5 mg PO DAILY PRN tablet 04/29/19 [Rx] Cyclobenzaprine [Flexeril] 10 mg PO Q8H PRN #40 tab 04/29/19 [Rx] Docusate Sodium [Colace] 100 mg PO BID cap 04/29/19 [Rx] Famotidine [Pepcid] 20 mg PO Q12H tablet 04/29/19 [Rx] Magnesium Hydroxide [Milk of Magnesia] 30 ml PO BID PRN cup 04/29/19 [Rx] Sennosides [Senna] 8.6 mg PO BID PRN tablet 04/29/19 [Rx] Patient Handouts: Total Hip Replacement, [id number] Referrals: Vivien Harding PA-C [Physician [employer]] - (Monday May 06, 2019 at 10:30am. Monday May 20, 2019 at 10:30am. Monday June 10, 2019 at 10:30am. ) - Discharge Summary/Plan Comment DC Time >30 min.: No - Patient Data Vitals - Most Recent: Last Vital Signs Temp 98.1 F 04/29/19 11:35 Pulse 69 04/29/19 11:35 Resp 16 04/29/19 11:35 BP 92/50 L 04/29/19 11:35 Pulse Ox 94 L 04/29/19 11:35 Weight - Most Recent: 189 lb 3.2 oz Med Orders - Current: Current Medications Discontinued Medications Acetaminophen (Tylenol) 975 mg PO ONETIME FELICIA Stop: 04/28/19 16:00 Last Admin: 04/28/19 11:00 Dose: 975 mg Albuterol (Proventil Neb Soln) 2.5 mg NEB ONETIME PRN PRN Reason: bronchodiltion Stop: 04/28/19 18:00 Last Admin: 04/28/19 11:18 Dose: 2.5 mg Aspirin (Ecotrin) 325 mg PO BID FELICIA Last Admin: 04/29/19 09:56 Dose: 325 mg Bisacodyl (Dulcolax) 5 mg PO DAILY PRN PRN Reason: Constipation Bupivacaine HCl (Sensorcaine-Mpf 0.25%) Confirm Administered Dose 30 ml .ROUTE .STK-MED ONE Stop: 04/28/19 11:35 Last Admin: 04/28/19 14:10 Dose: 30 ml Cefazolin Sodium (Ancef) Confirm Administered Dose 2 gm .ROUTE .STK-MED ONE Stop: 04/28/19 11:35 Last Admin: 04/28/19 14:04 Dose: 2 gm Cefazolin Sodium (Ancef) Confirm Administered Dose 2 gm .ROUTE .STK-MED ONE Stop: 04/28/19 13:17 Morphine Sulfate 8 mg/Epinephrine HCl 0.3 mg/Cefuroxime Sodium 750 mg/Ketorolac Tromethamine 30 mg/Sodium Chloride 27.9 ml 0 mg .XX ONETIME ONE Stop: 04/28/19 09:01 Last Admin: 04/28/19 14:09 Dose: 788.3 mg Dexamethasone (Dexamethasone) Confirm Administered Dose 20 mg .ROUTE .STK-MED ONE Stop: 04/28/19 11:40 Docusate Sodium (Colace) 100 mg PO BID [facility] Last Admin: 04/29/19 09:56 Dose: 100 mg Famotidine (Pepcid) 20 mg PO Q12H [facility] Last Admin: 04/29/19 09:56 Dose: 20 mg Fentanyl (Sublimaze) Confirm Administered Dose 100 mcg .ROUTE .STK-MED ONE Stop: 04/28/19 11:39 Fentanyl (Sublimaze) 50 mcg IVPUSH Q5M PRN PRN Reason: Pain Stop: 04/28/19 15:30 Hydromorphone HCl (Dilaudid) 0.5 mg IVPUSH Q10M PRN PRN Reason: Pain (severe 7-10) Stop: 04/28/19 15:30 Lactated Ringer's (Ringers, Lactated) 1,000 mls @ 125 mls/hr IV ASDIRECTED [facility] Stop: 04/28/19 23:00 Last Admin: 04/28/19 15:30 Dose: 125 mls/hr Cefazolin Sodium/Dextrose 2 gm (/ Premix) 50 mls @ 100 mls/hr IV Q8H [facility] Stop: 04/29/19 13:29 Last Admin: 04/29/19 15:46 Dose: Not Given Lidocaine HCl (Xylocaine-Mpf 1%) Confirm Administered Dose 4 mls @ as directed .ROUTE .STK-MED ONE Stop: 04/28/19 11:40 Iodine (Iodine 2% Mild Tincture) Confirm Administered Dose 30 ml .ROUTE .STK- MED ONE Stop: 04/28/19 11:35 Ketamine HCl (Ketalar) Confirm Administered Dose 500 mg .ROUTE .STK-MED ONE Stop: 04/28/19 11:40 Ketorolac Tromethamine (Toradol) 15 mg IVPUSH Q6H PRN PRN Reason: Pain Ketorolac Tromethamine (Toradol) Confirm Administered Dose 30 mg .ROUTE .STK- MED ONE Stop: 04/28/19 11:40 Lidocaine/Sodium Bicarbonate (Buffered Lidocaine 1% In Ns 8.4%) 0.25 ml IDERM ONETIME PRN PRN Reason: Prior to IV Start Stop: 04/28/19 18:00 Last Admin: 04/28/19 10:30 Dose: 0.25 ml Magnesium Hydroxide (Milk Of Magnesia) 30 ml PO BID PRN PRN Reason: Constipation Midazolam HCl (Versed 1 Mg/Ml) Confirm Administered Dose 2 mg .ROUTE .STK-MED ONE Stop: 04/28/19 11:39 Midazolam HCl (Versed 1 Mg/Ml) Confirm Administered Dose 2 mg .ROUTE .STK-MED ONE Stop: 04/28/19 12:47 Morphine Sulfate (Morphine) 2 mg IVPUSH Q2H PRN PRN Reason: Breakthrough Pain Naloxone HCl (Narcan) 0.1 mg IVPUSH Q5M PRN PRN Reason: Oversedation Ondansetron HCl (Zofran) 4 mg IVPUSH Q6H PRN PRN Reason: Nausea/Vomiting Ondansetron HCl (Zofran) Confirm Administered Dose 4 mg .ROUTE .STK-MED ONE Stop: 04/28/19 11:40 Ondansetron HCl (Zofran) 4 mg IVPUSH ONETIME PRN PRN Reason: Nausea/Vomiting Stop: 04/28/19 15:30 Oxycodone HCl (Oxycontin) 10 mg PO ONETIME FELICIA Stop: 04/28/19 16:00 Last Admin: 04/28/19 11:00 Dose: 10 mg Oxycodone/Acetaminophen (Percocet 325-5 Mg) 1 - 2 tab PO Q4H PRN PRN Reason: Pain Last Admin: 04/29/19 13:42 Dose: 2 tab Pregabalin (Lyrica) 50 mg PO ONETIME FELICIA Stop: 04/28/19 16:00 Last Admin: 04/28/19 11:01 Dose: 50 mg Propofol (Diprivan 20 Ml) Confirm Administered Dose 600 mg .ROUTE .STK-MED ONE Stop: 04/28/19 11:39 Scopolamine (Transderm-Scop) 1.5 mg TRDERM ONETIME PRN PRN Reason: PONV Stop: 04/28/19 08:01 Scopolamine (Transderm-Scop) 1.5 mg TOP ONETIME FELICIA Stop: 04/28/19 12:00 Last Admin: 04/28/19 10:17 Dose: 1.5 mg Senna (Senna) 8.6 mg PO BID PRN PRN Reason: Constipation Sodium Chloride (Saline Flush) 10 ml FLUSH ASDIRECTED PRN PRN Reason: Keep Vein Open Stop: 04/28/19 18:00 Tranexamic Acid (Cyklokapron) Confirm Administered Dose 1,000 mg .ROUTE .STK- MED ONE Stop: 04/28/19 11:35 Last Admin: 04/28/19 14:11 Dose: 1,000 mg Vancomycin HCl (Vancomycin) Confirm Administered Dose 1 gm .ROUTE .STK-MED ONE Stop: 04/28/19 11:35 Last Admin: 04/28/19 14:11 Dose: 1 gm
--- NOTE | 2019-05-02 14:25 | PCM.OPNOTE ---
- General Post-Op/Procedure Note Date of Surgery/Procedure: 04/28/19 Operative Procedure(s): left total hip arthroplasty Pre Op Diagnosis: left hip osteoarthrosis Post-Op Diagnosis: Same Anesthesia Technique: Local, MAC, Spinal Primary Surgeon: Abraham Luna Anesthesia Provider: Amanda Diaz [employer]eral [employer] Apprentice: Vivien Harding Funeral Service Apprentice: Yael Harris EBQian in mLs: 400 Complications: None Condition: Good Free Text/Narrative:: 56 cup 5 stem 36
--- NOTE | 2019-05-02 15:15 | OR ---
DATE OF OPERATION: 04/28/2019 SURGEON: Abraham Luna MD OPERATION PERFORMED: Left total hip arthroplasty. PREOPERATIVE DIAGNOSIS: Left hip osteoarthrosis. POSTOPERATIVE DIAGNOSIS: Left hip osteoarthrosis. ANESTHESIA: Local MAC with spinal. ANESTHESIA PROVIDER: CANNON PINION ADJUSTER: Vivien Harding PA-C and Yael Harris LPN. ESTIMATED BLOOD LOSS: 400 mL. COMPLICATIONS: None. CONDITION: Stable. IMPLANTS: 1. [place] size 56-mm solid Tritanium II acetabular cup. 2. [place] size 36-mm polyethylene liner flap. 3. [place] size 5 Accolade II stem. 4. [place] size 36+ 0 Biolox femoral head. DESCRIPTION OF PROCEDURE: The patient was identified in the preop holding area. Proper site was marked and identified by the surgeon. The patient was taken back to the operating theater where after adequate anesthesia, the patient was placed in the right lateral decubitus position. Axillary roll was placed. All bony prominences were well padded. Pegs were then placed and were properly secured and well padded. The patient's gluteal fold was parallel to the floor. At this time, the left hip was sterilely prepped and draped in the usual sterile fashion. OR time-out was performed. The patient received 2 g IV Ancef. At this time, standard posterior incision was made centered over the greater trochanter. This was taken down to the IT band and gluteal fascia which was incised along the incisional length. Charnley retractor was then placed. Short external rotators were identified and takedown of the short external rotators was done from the level of the piriformis down to the lesser trochanter. The hip was then dislocated. Neck cut was then completed and found to be adequate. Anterior and posterior acetabular retractors were then placed and the labrum was removed as well as the pulvinar. Starting with the 52 reamer, I was able to ream up to a 56 which was found to have good purchase with good bony bleeding bed. At this time, a 56-mm Tritanium II acetabular cup was impacted in place in roughly 45 degrees of abduction and 20 to 30 degrees of anteversion. The 36 flat liner was then impacted in place. Attention was turned to the femur. Box chisel and starter awl were placed down the canal. Starting with the 0 broach, I was able to broach up to a size 5 which was found to be rotationally and vertically stable. Trial implants were placed, 36+ 0 was found to have adequate congregational of leg-lengths and was stable throughout range of motion. Bone hook was used to dislocate the hip. Size 5 Accolade II stem was then impacted in place along with a 36+ 0 head. Hip was then relocated and a #5 Ethibond suture was used for closure of short external rotators and capsule. 1 L dilute Betadine solution was irrigated through the hip along with 3 L pulse lavage irrigation with Ancef. Topical tranexamic acid and vancomycin powder were placed. #2 barbed suture was used for closure of the IT band and gluteal fascia, 2-0 Vicryl was used subcutaneously, and Prineo was used for the skin. The patient tolerated the procedure well and was sent to PACU in stable condition. TAYA /[id number]
== END 2019-04-29 14:00 | disposition home or self-care (01) | DRG 301 ==
LOC: JD.MS 09:55
PROVIDERS: ADMIT Orthopaedic Surgery; ATTEND Orthopaedic Surgery
PROC: 0SRB0JZ Replacement of Left Hip Joint with Synthetic Substitute, Open Approach (ICD-10-PCS; principal; 2019-04-28)
DX: M16.12 Unilateral primary osteoarthritis, left hip (principal); J45.909 Unspecified asthma, uncomplicated; E66.9 Obesity, unspecified; Z90.49 Acquired absence of other specified parts of digestive tract; Z68.34 Body mass index [BMI] 34.0-34.9, adult
CPT/HCPCS: 01214; 36415; 73501-26-LT; 73501-LT; 80053; 85027; 86850; 86900; 86901; 94640; 97110-GP; 97116-GP; 97161-GP; 97165-GO; 97535-GO; A9270-GY; C1776; J0171; J0690; J0697; J1100; J1885; J2001; J2250; J2270; J2405; J2704; J3010; J3370; J3490; J7120